=== PATIENT | female | born 1950 | race Caucasian/White ===

== ENCOUNTER 2017-12-23 14:22 | Emergency (ER) | payer MEDICARE, OTHER ==
[~2017-12-23] VITALS: Ht 157.5 cm; Wt 77.1 kg
[~2017-12-23 14:22] MED LIST: ALBU90OI6 INH; AMIT50; AMIT75; ARIP10 PO; AZIT250 PO; CALCAVITD PO; CARB100ER; CARB200 PO; CITA20 PO; CLIM.025TP TP; CLON.5 PO; DULO30 PO; ESOM20 PO; ESTR.05P; GABA300 PO; GLUC500 PO; HYDACE10B PO; HYDACE5; HYDCOR10; Keflex500 MG PO; LAVAP4L PO; LEVFLO500 PO; LORA2 PO; META800 PO; METH10 PO; METR500 PO; MONT5TCH PO; MONTELUKAST SOD10 MG PO; MULVITMINF PO; Norco 5-325 Ta1 EACH PO; Nystatin15 GM TOP; Nystatin15 GM TP; OMEP40CA12 PO; OXYACE5T PO; OXYC40ER; Oxycodone-Apap1 EAC3 PO; PARO10 PO; PARO20; PRAV10 PO; PRODEXEL PO; Percocet 5-3251 EACH PO; Pravastatin Sod20 MG PO; Pyridium200 MG PO; SOLI5; TAMS.4ER PO; VALD20 PO; VENL25; Valium5 MG PO; Zofran Odt8 MG SL; [UNRECOGNIZED DRUG - REMARK]; [UNRECOGNIZED DRUG - REMARK]; [UNRECOGNIZED DRUG - REMARK]; [UNRECOGNIZED DRUG - REMARK]; [UNRECOGNIZED DRUG - REMARK]
[2017-12-23 15:18] LABS: BASOPHILS ABSOLUTE AUTO 0.03 K/mm3 (0.00-0.23); BASOPHILS PERCENT AUTO 1 % (0-2); EOSINOPHILS ABSOLUTE AUTO 0.08 K/mm3 (0.00-0.68); EOSINOPHILS PERCENT AUTO 1 % (0-6); Hematocrit 40.7 % (33.0-51.0); Hemoglobin 13.3 g/dL (11.5-16.0); IMMATURE GRAN ABSOLUTE AUTO 0.02 K/mm3 (0.00-0.10); IMMATURE GRAN PERCENT AUTO 0 % (0-1); LYMPHOCYTES ABSOLUTE AUTO 1.21 K/mm3 (0.84-5.20); LYMPHOCYTES PERCENT AUTO 20 % (21-46); MONOCYTES ABSOLUTE AUTO 0.67 K/mm3 (0.16-1.47); MONOCYTES PERCENT AUTO 11 % (4-13); Mean Corpuscular HGB 31.7 pg (26.0-34.0); Mean Corpuscular HGB Conc 32.7 g/dL (31.5-36.5); Mean Corpuscular Volume 97 fL (80-100); Mean Platelet Volume 9.4 fL (9.1-12.4); NEUTROPHILS ABSOLUTE AUTO 4.04 K/mm3 (1.96-9.15); NEUTROPHILS PERCENT AUTO 67 % (41-73); Platelet Count 279 K/mm3 (150-400); RDW Standard Deviation 43.3 fL (35.1-46.3); Red Blood Cell Count 4.19 M/mm3 (3.80-5.20); White Blood Cell Count 6.05 K/mm3 (4.00-11.30)
[2017-12-23 15:36] LABS: Alanine Aminotransfer (ALT/SGP 23 U/L (12-78); Albumin, Blood 3.8 g/dL (3.4-5.0); Alk Phos 103 U/L (50-136); Anion Gap 6 mmol/L (6-16); Aspartate Aminotrans (AST/SGOT 19 U/L (12-37); Bilirubin, Total 0.2 mg/dL (0.1-1.0); Blood Urea Nitrogen 15 mg/dL (8-24); Bun/Creatinine Ratio 30.8 (12.0-20.0); CO2, Blood 32 mmol/L (21-32); Calcium, Blood 8.5 mg/dL (8.5-10.1); Chloride, Blood 99 mmol/L (98-108); Creatinine, Blood 0.49 mg/dL (0.40-1.00); Glomerular Filtration Rate >60 (60-); Glucose, Blood 196 mg/dL (70-99); Sodium, Blood 137 mmol/L (136-145); Total Protein, Blood 7.8 g/dL (6.4-8.2)
[2017-12-23] MEDS ORDERED: Zofran Odt4 MG PO (18:02)
== END 2017-12-23 18:30 | disposition home or self-care (01) ==
LOC: ER 14:22
PROVIDERS: Emergency Medicine
DX: R11.2 Nausea with vomiting, unspecified (principal); R19.7 Diarrhea, unspecified; Z79.891 Long term (current) use of opiate analgesic; Z79.899 Other long term (current) drug therapy; F17.210 Nicotine dependence, cigarettes, uncomplicated
CPT/HCPCS: 36415; 80053; 81000; 83690; 85025; 96361; 96374; 99283; J2405; J7030

== ENCOUNTER → 2018-01-19 | Outpatient (CLI) | payer MEDICARE, OTHER ==
[~2018-01-19] MED LIST changes: +Zofran Odt4 MG PO
[2018-01-19 13:04] LABS: BASOPHILS ABSOLUTE AUTO 0.03 K/mm3 (0.00-0.23); BASOPHILS PERCENT AUTO 1 % (0-2); EOSINOPHILS ABSOLUTE AUTO 0.13 K/mm3 (0.00-0.68); EOSINOPHILS PERCENT AUTO 2 % (0-6); Hematocrit 41.7 % (33.0-51.0); Hemoglobin 13.9 g/dL (11.5-16.0); IMMATURE GRAN ABSOLUTE AUTO 0.09 K/mm3 (0.00-0.10); IMMATURE GRAN PERCENT AUTO 1 % (0-1); LYMPHOCYTES ABSOLUTE AUTO 1.54 K/mm3 (0.84-5.20); LYMPHOCYTES PERCENT AUTO 23 % (21-46); MONOCYTES ABSOLUTE AUTO 0.58 K/mm3 (0.16-1.47); MONOCYTES PERCENT AUTO 9 % (4-13); Mean Corpuscular HGB 31.4 pg (26.0-34.0); Mean Corpuscular HGB Conc 33.3 g/dL (31.5-36.5); Mean Corpuscular Volume 94 fL (80-100); Mean Platelet Volume 9.1 fL (9.1-12.4); NEUTROPHILS ABSOLUTE AUTO 4.27 K/mm3 (1.96-9.15); NEUTROPHILS PERCENT AUTO 64 % (41-73); Platelet Count 310 K/mm3 (150-400); RDW Coefficient Variation 11.9 % (11.7-14.2); RDW Standard Deviation 41.6 fL (35.1-46.3); Red Blood Cell Count 4.43 M/mm3 (3.80-5.20); White Blood Cell Count 6.64 K/mm3 (4.00-11.30)
== END | disposition home or self-care (01) ==
LOC: LAB EV 12:59 → LAB SHORT 12:59
PROVIDERS: Family Medicine
DX: K62.5 Hemorrhage of anus and rectum (principal)
CPT/HCPCS: 85025

== ENCOUNTER 2018-10-19 20:12 | Observation (INO) | payer MEDICARE, OTHER ==
[~2018-10-19] VITALS: Ht 157.5 cm; Wt 75.3 kg
[2018-10-19] MEDS ORDERED: AMIT75 PO (20:38)
[2018-10-19 21:34] LABS: BASOPHILS ABSOLUTE AUTO 0.06 K/mm3 (0.00-0.23); BASOPHILS PERCENT AUTO 1 % (0-2); EOSINOPHILS ABSOLUTE AUTO 0.08 K/mm3 (0.00-0.68); EOSINOPHILS PERCENT AUTO 1 % (0-6); Hematocrit 37.7 % (33.0-51.0); IMMATURE GRAN ABSOLUTE AUTO 0.06 K/mm3 (0.00-0.10); IMMATURE GRAN PERCENT AUTO 1 % (0-1); LYMPHOCYTES ABSOLUTE AUTO 2.16 K/mm3 (0.84-5.20); LYMPHOCYTES PERCENT AUTO 18 % (21-46); MONOCYTES ABSOLUTE AUTO 1.08 K/mm3 (0.16-1.47); MONOCYTES PERCENT AUTO 9 % (4-13); Mean Corpuscular HGB 31.8 pg (26.0-34.0); Mean Corpuscular HGB Conc 31.8 g/dL (31.5-36.5); Mean Corpuscular Volume 100 fL (80-100); Mean Platelet Volume 9.5 fL (9.1-12.4); NEUTROPHILS ABSOLUTE AUTO 8.83 K/mm3 (1.96-9.15); NEUTROPHILS PERCENT AUTO 72 % (41-73); Platelet Count 284 K/mm3 (150-400); RDW Coefficient Variation 12.3 % (11.7-14.2); RDW Standard Deviation 45.4 fL (35.1-46.3); Red Blood Cell Count 3.77 M/mm3 (3.80-5.20); White Blood Cell Count 12.27 K/mm3 (4.00-11.30)
[2018-10-19 21:45] LABS: Alanine Aminotransfer (ALT/SGP 25 U/L (12-78); Albumin, Blood 3.9 g/dL (3.4-5.0); Albumin/Globulin Ratio 1.1 (0.8-1.8); Alk Phos 90 U/L (50-136); Anion Gap 11 mmol/L (6-16); Aspartate Aminotrans (AST/SGOT 15 U/L (12-37); Bilirubin, Total 0.3 mg/dL (0.1-1.0); Blood Urea Nitrogen 12 mg/dL (8-24); Bun/Creatinine Ratio 18.1 (12.0-20.0); CO2, Blood 28 mmol/L (21-32); Calcium, Blood 8.9 mg/dL (8.5-10.1); Chloride, Blood 102 mmol/L (98-108); Creatinine, Blood 0.66 mg/dL (0.40-1.00); Globulin, Blood 3.4 g/dL (2.2-4.0); Glomerular Filtration Rate >60 (60-); Glucose, Blood 194 mg/dL (70-99); Potassium, Blood 3.6 mmol/L (3.5-5.5); Salicylate 3.3 mg/dL (2.8-20.0); Sodium, Blood 141 mmol/L (136-145); Total Protein, Blood 7.3 g/dL (6.4-8.2)
[2018-10-19 21:50] LABS: Acetaminophen, Random <2.0 ug/mL (10.0-30.0)
[2018-10-19 22:21] LABS: U Amphetamine Screen Not Detected; U Barbituate Screen Not Detected; U Benzodiazapine Screen Not Detected; U Buprenorphine Screen Not Detected; U Cannabinoids Screen Not Detected; U Cocaine Screen Not Detected; U Methadone Screen Not Detected; U Methamphetamine Screen Not Detected; U Opiates Screen Not Detected; U Oxycodone Screen Not Detected; U Phencyclidine Screen Not Detected; U Propoxyphene Screen Not Detected
[2018-10-20 00:08] LABS: Source, Urine Clean Catch
[2018-10-20 00:11] LABS: Bilirubin, Urine Neg (Neg); Blood, Urine Neg (Neg); Glucose Qualitative, Urine Neg (Neg); Ketones, Urine Neg (Neg); Leukocyte Esterase, Urine Neg (Neg); Nitrite, Urine Neg (Neg); Protein, Urine 2+ (Neg); Specific Gravity, Urine 1.005 (1.003-1.022); Urobilinogen, Urine NORM (Normal)
[2018-10-20 00:23] LABS: Appearance, Urine Clear (Clear); Color, Urine Yellow (P-Yellow)
[2018-10-20 00:24] LABS: Bacteria Few /hpf; Red Blood Cells, Urine 0-2 /hpf (0-2); Squamous Epithelial Cells Rare /hpf (Few)
--- NOTE | 2018-10-20 00:35 | NUR ---
ADMIT PT ARRIVES FROM ER VIA STRETCHER, ALERT TO SELF, KNOWS THAT SHE IS IN THE HOSPITAL, THAT IT WAS HOT TODAY AND HER IS NAMED CAPRI (WHO WENT HOME PRIOR TO ARRIVAL), CONFUSED TO DATE/TIME AND REPEATS QUESTIONS- UNCLEAR WHAT PT'S BASELINE IS W/ HX AVM/CVA/TBI. PT MAKING NEEDS KNOWN BUT IS REPETITIVELY ASKING QUESTIONS ABOUT FOOD AND WATER. EDUCATED AND EXPLAINED CONCERNS ABOUT CHANGE IN LOC AND PT APPEARS TO UNDERSTAND. PT THEN ASKS FOR HER EVENING DOSE OF AMITRYPTYLINE BUT DOES REMEMBER "I SCREWED UP MY MEDS TONIGHT" BUT CANNOT REMEMBER HOW MANY PILLS SHE TOOK. POISON CONTROL CALLED AND WAS UPDATED, ECG SHOWS SR WITH QTC AT 0.45 AND NARROW QRS. PLAN TO INITIATE ADMIT ORDERS.
--- NOTE | 2018-10-20 06:30 | NUR ---
SHIFT SUMMARY NO ACUTE EVENTS OVERNIGHT. BP STABLE, ECG REMAINS NARROW COMPLEX WITH QTC < 0.50. PT CURRENTLY SLEEPING AFTER INITALLY BEING RESTLESS AND UNABLE TO GET COMFORTABLE. #1 NS AT 75ML/HR WITH PLAN FOR TOTAL OF 1.5L. PT HAS ONLY ONE PIV, MADE ATTEMPT X 2 WITH/WITHOUT ULTRASOUND BUT UNABLE TO PLACE #2. AM LABS DUR AT 1000 D/T LATE ADMIT TIME-WILL PASS OFF TO AM RN.
--- NOTE | 2018-10-20 08:00 | NUR ---
INITIAL ASSESSMENT PATIENT RESTING QUIELTLY IN BED UPON ENTERING ROOM. PATIENT ALERT AND ORIENTED TO SELF, PLACE, EVENT, FAMILY, AND FOLLOWING DIRECTIONS. PATIENT IS NOT ORIENTED TO DATE AND DOES SEEM TO HAVE PROBLEMS WITH SHORT TERM MEMORY. PATIENT HAS HISTORY OF TBI AND STROKE. PATIENT'S LEFT ARM IS CONTRACTED- LEFT SIDE DEFICITS NOTED. PATIENT HAS GROSS MOVEMENT OF BLES. NORMAL STRENGTH IN BUES. PATIENT DENIES PAIN. PATIENT AFEBRILE. PATIENT CAN BE NEEDY/ ANXIOUS AT TIMES. PATIENT SATTING WELL ON RA. LUNGS CLEAR IN UPPER LOBES, DIMINISHED IN LOWER LOBES. PATIENT IN SR, HR IN THE 60S. SBP IN THE 170S. R SIDE PULSES 2+ IN STRENGTH. LEFT SIDE PULSES 1+ IN STRENGTH. ABDOMEN SOFT, NORMAL FOR PATIENT, HYPOACTIVE BS NOTED. PATIENT STATES SHE HAS FREQUENCY WITH VOIDING. SCATTERED BRUISING NOTED. NS INFUSING AT 75 MLS/ HOUR. BED LOW, CALL LIGHT IN REACH. WILL CONTINUE TO MONITOR PATIENT FREQUENTLY THROUGHOUT SHIFT.
[2018-10-20 10:15] LABS: Hematocrit 35.2 % (33.0-51.0); Hemoglobin 11.2 g/dL (11.5-16.0); Mean Corpuscular HGB 31.2 pg (26.0-34.0); Mean Corpuscular HGB Conc 31.8 g/dL (31.5-36.5); Mean Corpuscular Volume 98 fL (80-100); Platelet Count 240 K/mm3 (150-400); RDW Coefficient Variation 12.3 % (11.7-14.2); RDW Standard Deviation 44.5 fL (35.1-46.3); Red Blood Cell Count 3.59 M/mm3 (3.80-5.20); White Blood Cell Count 7.03 K/mm3 (4.00-11.30)
[2018-10-20 10:37] LABS: Alanine Aminotransfer (ALT/SGP 25 U/L (12-78); Albumin, Blood 3.5 g/dL (3.4-5.0); Alk Phos 88 U/L (50-136); Anion Gap 5 mmol/L (6-16); Aspartate Aminotrans (AST/SGOT 14 U/L (12-37); Bilirubin, Total 0.4 mg/dL (0.1-1.0); Blood Urea Nitrogen 9 mg/dL (8-24); Bun/Creatinine Ratio 23.9 (12.0-20.0); CO2, Blood 31 mmol/L (21-32); Calcium, Blood 8.7 mg/dL (8.5-10.1); Chloride, Blood 105 mmol/L (98-108); Creatinine, Blood 0.38 mg/dL (0.40-1.00); Globulin, Blood 3.4 g/dL (2.2-4.0); Glomerular Filtration Rate >60 (60-); Glucose, Blood 128 mg/dL (70-99); Potassium, Blood 3.6 mmol/L (3.5-5.5); Sodium, Blood 141 mmol/L (136-145); Total Protein, Blood 6.9 g/dL (6.4-8.2)
--- NOTE | 2018-10-20 11:04 | NUR ---
DR. THOR CORBETT IN ROOM THIS AM. NOTIFIED OF PATIENT'S SBP IN THE 160S TO 170S. STATED HE WILL BE PUTTING ORDERS IN.
--- NOTE | 2018-10-20 12:19 | NUR ---
PATIENT NAPPING ON AND OFF. AT BEDSIDE. PATIENT DENIES PAIN. PATIENT STATES SHE IS HUNGRY. PATIENT AFEBRILE. PATIENT REMAINS SATTING WELL ON RA. PATIENT HYPERTENSIVE. PATIENT GIVEN HOME BP MEDICATION. WILL CONTINUE TO MONITOR. ESTROGEN PATCH REMOVED DC'D BY DR. THOR CORBETT. IV FLUSHED AND SALINE LOCKED. NO OTHER ACUTE CHANGES TO NOTE ON AT THIS TIME. WILL CONTINUE TO MONITOR.
--- NOTE | 2018-10-20 13:39 | NUR ---
BP IMPROVED AFTER RECEIVING HOME DOSE OF PO BP MED.
[2018-10-20] MEDS ORDERED: CLON2 PO (14:06)
[2018-10-20] MEDS ORDERED: DICLOFENAC SOD100 G1 TOP (14:07)
[2018-10-20] MEDS ORDERED: Acetaminophen1 EAC2 PO (14:08)
[2018-10-20] MEDS ORDERED: LOSARTAN-HCTZ1 EACH PO (14:10)
--- NOTE | 2018-10-20 14:31 | NUR ---
DR. CORBETT CALLED TO ASK IF PATIENT HAD EATEN AND GOTTEN OOB. PATIENT HAS HAD LUNCH AND IS IN CHAIR, WAITING FOR TO RETURN. KRISS JIMENEZ [place] IN ROOM TALKING TO PATIENT AT THIS TIME.
[2018-10-20] MEDS ORDERED: METF500 PO (14:57)
[2018-10-20] MEDS ORDERED: Omeprazole20 M1 PO (14:59)
[2018-10-20] MEDS ORDERED: OXYC10TA19 PO (15:01)
[2018-10-20] MEDS ORDERED: PARO20 PO (15:02)
[2018-10-20] MEDS ORDERED: TRIA15CR3 TOP (15:04)
[2018-10-20] MEDS ORDERED: VENL150ER PO (15:04)
[2018-10-20] MEDS ORDERED: ALBU90OI INH (15:05)
[2018-10-20] MEDS ORDERED: ROXICODONE5 MG PO (15:33)
--- NOTE | 2018-10-20 16:20 | NUR ---
VITAL SIGNS STABLE. PATIENT ABLE TO TRANSFER SELF TO WHEELCHAIR WITH NO PROBLEMS. BACK AT BEDSIDE. AND PATIENT GIVEN DISCHARGE INFO. BOTH STATE THAT THEY UNDERSTAND DISCHARGE INSTRUCTIONS. WHEELING PATIENT OUT IN HOME WHEELCHAIR NOW. DISCHARGE COMPLETE.
== END 2018-10-20 16:20 | disposition home or self-care (01) ==
LOC: ER 20:12 → ICUW 20:13 → ICUE 10-20 00:50
PROVIDERS: Emergency Medicine; ADMIT Internal Medicine
DX: T43.011A Poisoning by tricyclic antidepressants, accidental (unintentional), initial encounter (principal); G92 Toxic encephalopathy; E86.0 Dehydration; I10 Essential (primary) hypertension; E11.9 Type 2 diabetes mellitus without complications; J44.9 Chronic obstructive pulmonary disease, unspecified; G40.909 Epilepsy, unspecified, not intractable, without status epilepticus; K21.9 Gastro-esophageal reflux disease without esophagitis; F32.9 Major depressive disorder, single episode, unspecified; F41.0 Panic disorder [episodic paroxysmal anxiety]; F51.04 Psychophysiologic insomnia; G81.94 Hemiplegia, unspecified affecting left nondominant side; G89.4 Chronic pain syndrome; M19.90 Unspecified osteoarthritis, unspecified site; E78.5 Hyperlipidemia, unspecified; F17.210 Nicotine dependence, cigarettes, uncomplicated; Z87.820 Personal history of traumatic brain injury; Z86.718 Personal history of other venous thrombosis and embolism; Z79.899 Other long term (current) drug therapy; Z87.798 Personal history of other (corrected) congenital malformations; Z79.84 Long term (current) use of oral hypoglycemic drugs
CPT/HCPCS: 36415; 70450; 80053; 81001; 82947; 85025; 85027; 93005; 93010; 96360; 96361; 96372; 99285-25; G0378; G0480; J1650; J7030

== ENCOUNTER 2019-08-10 10:17 | Day surgery (SDC) | payer MEDICARE, OTHER ==
[~2019-08-10] VITALS: Ht 157.5 cm; Wt 75.0 kg
[~2019-08-10 10:17] MED LIST changes: +ALBU90OI INH; +AMIT75 PO; +Acetaminophen1 EAC2 PO; +CLON2 PO; +DICLOFENAC SOD100 G1 TOP; +LOSARTAN-HCTZ1 EACH PO; +METF500 PO; +OXYC10TA19 PO; +Omeprazole20 M1 PO; +PARO20 PO; +ROXICODONE5 MG PO; +TRIA15CR3 TOP; +VENL150ER PO
[2019-08-10] MEDS ORDERED: MONT4 (11:10)
[2019-08-10] MEDS ORDERED: CARB100ER (11:10)
--- NOTE | 2019-08-10 11:41 | NUR ---
08/10/19 1141 Lacy Otto PT UP TO RESTROOM WITH THIS RN AND SPOUSE VIA PERSONAL WHEELCHAIR.
--- NOTE | 2019-08-10 12:41 | NUR ---
08/10/19 1241 Lacy Otto UNABLE TO RETRIEVE SIGMOID COLON POLYP.
== END 2019-08-10 13:17 | disposition home or self-care (01) ==
LOC: ORSCSDS 10:17
PROVIDERS: Internal Medicine Gastroenterology
PROC: 0DBN8ZX Excision of Sigmoid Colon, Via Natural or Artificial Opening Endoscopic, Diagnostic (ICD-10-PCS; principal; 2019-08-10 12:00)
PROC: 0DB68ZX Excision of Stomach, Via Natural or Artificial Opening Endoscopic, Diagnostic (ICD-10-PCS; principal; 2019-08-10 12:00)
DX: K21.9 Gastro-esophageal reflux disease without esophagitis (principal); K92.1 Melena; K29.70 Gastritis, unspecified, without bleeding; K64.4 Residual hemorrhoidal skin tags; D37.4 Neoplasm of uncertain behavior of colon; K64.8 Other hemorrhoids; I10 Essential (primary) hypertension; E11.9 Type 2 diabetes mellitus without complications; J44.9 Chronic obstructive pulmonary disease, unspecified; Z87.891 Personal history of nicotine dependence; G47.33 Obstructive sleep apnea (adult) (pediatric); Z79.84 Long term (current) use of oral hypoglycemic drugs
CPT/HCPCS: 82947; 88305; 88342; J2704; J7120

== ENCOUNTER 2019-08-31 12:42 | Emergency (ER) | payer MEDICARE, OTHER ==
[~2019-08-31] VITALS: Ht 157.5 cm; Wt 72.6 kg
[~2019-08-31 12:42] MED LIST changes: +MONT4
[2019-08-31 13:41] LABS: Alanine Aminotransfer (ALT/SGP 22 U/L (12-78); Alk Phos 116 U/L (50-136); Anion Gap 8 mmol/L (6-16); Aspartate Aminotrans (AST/SGOT 15 U/L (12-37); Bilirubin, Total 0.2 mg/dL (0.1-1.0); Blood Urea Nitrogen 14 mg/dL (8-24); Bun/Creatinine Ratio 20.2 (12.0-20.0); CO2, Blood 28 mmol/L (21-32); Calcium, Blood 8.8 mg/dL (8.5-10.1); Chloride, Blood 101 mmol/L (98-108); Creatinine, Blood 0.69 mg/dL (0.40-1.00); Globulin, Blood 4.1 g/dL (2.2-4.0); Glomerular Filtration Rate >60 (60-); Glucose, Blood 251 mg/dL (70-99); Potassium, Blood 3.7 mmol/L (3.5-5.5); Sodium, Blood 137 mmol/L (136-145); Total Protein, Blood 8.1 g/dL (6.4-8.2)
[2019-08-31 13:55] LABS: BASOPHILS ABSOLUTE AUTO 0.03 K/mm3 (0.00-0.23); BASOPHILS PERCENT AUTO 1 % (0-2); EOSINOPHILS PERCENT AUTO 2 % (0-6); Hematocrit 36.5 % (33.0-51.0); Hemoglobin 11.8 g/dL (11.5-16.0); IMMATURE GRAN ABSOLUTE AUTO 0.03 K/mm3 (0.00-0.10); IMMATURE GRAN PERCENT AUTO 1 % (0-1); LYMPHOCYTES ABSOLUTE AUTO 2.22 K/mm3 (0.84-5.20); LYMPHOCYTES PERCENT AUTO 38 % (21-46); MONOCYTES ABSOLUTE AUTO 0.54 K/mm3 (0.16-1.47); MONOCYTES PERCENT AUTO 9 % (4-13); Mean Corpuscular HGB 31.5 pg (26.0-34.0); Mean Corpuscular HGB Conc 32.3 g/dL (31.5-36.5); Mean Corpuscular Volume 97 fL (80-100); NEUTROPHILS ABSOLUTE AUTO 2.93 K/mm3 (1.96-9.15); NEUTROPHILS PERCENT AUTO 50 % (41-73); RDW Coefficient Variation 11.9 % (11.7-14.2); Red Blood Cell Count 3.75 M/mm3 (3.80-5.20); White Blood Cell Count 5.85 K/mm3 (4.00-11.30)
[2019-08-31 15:37] LABS: Source, Urine Clean Catch
[2019-08-31 15:53] LABS: Bilirubin, Urine Neg (Neg); Blood, Urine Neg (Neg); Glucose Qualitative, Urine Neg (Neg); Ketones, Urine Neg (Neg); Leukocyte Esterase, Urine 1+ (Neg); Nitrite, Urine Neg (Neg); Protein, Urine 1+ (Neg); Urobilinogen, Urine NORM (Normal)
[2019-08-31 16:08] LABS: Appearance, Urine Clear (Clear); Color, Urine Yellow (P-Yellow)
[2019-08-31 16:10] LABS: Red Blood Cells, Urine 0-2 /hpf (0-2)
[2019-08-31 16:11] LABS: Bacteria Mod /hpf; Squamous Epithelial Cells Few /hpf (Few)
[2019-08-31] MEDS ORDERED: CYCL10 PO (17:04)
== END 2019-08-31 17:25 | disposition home or self-care (01) ==
LOC: ER 12:42
PROVIDERS: Emergency Medicine
DX: M54.9 Dorsalgia, unspecified (principal); K62.5 Hemorrhage of anus and rectum; J44.9 Chronic obstructive pulmonary disease, unspecified; F17.210 Nicotine dependence, cigarettes, uncomplicated; Z79.899 Other long term (current) drug therapy; Z79.84 Long term (current) use of oral hypoglycemic drugs
CPT/HCPCS: 36415; 72100; 80053; 81001; 85025; 87086; 99283-25

== ENCOUNTER → 2019-10-28 | Outpatient (CLI) | payer MEDICARE, OTHER ==
[~2019-10-28] MED LIST changes: +CYCL10 PO
[2019-10-28 12:12] LABS: BASOPHILS ABSOLUTE AUTO 0.02 K/mm3 (0.00-0.23); BASOPHILS PERCENT AUTO 0 % (0-2); EOSINOPHILS ABSOLUTE AUTO 0.02 K/mm3 (0.00-0.68); EOSINOPHILS PERCENT AUTO 0 % (0-6); Hematocrit 38.6 % (33.0-51.0); Hemoglobin 12.6 g/dL (11.5-16.0); IMMATURE GRAN ABSOLUTE AUTO 0.05 K/mm3 (0.00-0.10); IMMATURE GRAN PERCENT AUTO 1 % (0-1); LYMPHOCYTES ABSOLUTE AUTO 1.35 K/mm3 (0.84-5.20); LYMPHOCYTES PERCENT AUTO 16 % (21-46); MONOCYTES ABSOLUTE AUTO 0.68 K/mm3 (0.16-1.47); MONOCYTES PERCENT AUTO 8 % (4-13); Mean Corpuscular HGB 31.4 pg (26.0-34.0); Mean Corpuscular HGB Conc 32.6 g/dL (31.5-36.5); Mean Corpuscular Volume 96 fL (80-100); Mean Platelet Volume 9.3 fL (9.1-12.4); NEUTROPHILS ABSOLUTE AUTO 6.33 K/mm3 (1.96-9.15); NEUTROPHILS PERCENT AUTO 75 % (41-73); Platelet Count 380 K/mm3 (150-400); RDW Coefficient Variation 12.4 % (11.7-14.2); RDW Standard Deviation 43.7 fL (35.1-46.3); Red Blood Cell Count 4.01 M/mm3 (3.80-5.20); White Blood Cell Count 8.45 K/mm3 (4.00-11.30)
[2019-10-28 12:29] LABS: Alanine Aminotransfer (ALT/SGP 25 U/L (12-78); Albumin, Blood 3.9 g/dL (3.4-5.0); Albumin/Globulin Ratio 0.8 (0.8-1.8); Alk Phos 131 U/L (40-126); Anion Gap 11 mmol/L (6-16); Aspartate Aminotrans (AST/SGOT 17 U/L (12-37); Bilirubin, Total 0.2 mg/dL (0.1-1.0); Blood Urea Nitrogen 28 mg/dL (8-24); Bun/Creatinine Ratio 31.8 (12.0-20.0); CO2, Blood 31 mmol/L (21-32); Calcium, Blood 9.3 mg/dL (8.5-10.1); Chloride, Blood 98 mmol/L (98-108); Creatinine, Blood 0.88 mg/dL (0.40-1.00); Globulin, Blood 4.6 g/dL (2.2-4.0); Glomerular Filtration Rate >60 (60-); Glucose, Blood 155 mg/dL (70-99); Potassium, Blood 4.5 mmol/L (3.5-5.5); Sodium, Blood 140 mmol/L (136-145); Total Protein, Blood 8.5 g/dL (6.4-8.2)
== END | disposition home or self-care (01) ==
LOC: LAB SHORT 12:07 → LAB EV 12:07
PROVIDERS: Physician Assistant
DX: R10.13 Epigastric pain (principal)
CPT/HCPCS: 80053; 83690; 85025

== ENCOUNTER 2019-11-03 18:04 | Emergency (ER) | payer MEDICARE, OTHER ==
[~2019-11-03] VITALS: Ht 157.5 cm; Wt 69.0 kg
[2019-11-03 20:31] LABS: BASOPHILS ABSOLUTE AUTO 0.05 K/mm3 (0.00-0.23); BASOPHILS PERCENT AUTO 1 % (0-2); EOSINOPHILS ABSOLUTE AUTO 0.11 K/mm3 (0.00-0.68); EOSINOPHILS PERCENT AUTO 2 % (0-6); Hematocrit 38.9 % (33.0-51.0); Hemoglobin 12.5 g/dL (11.5-16.0); IMMATURE GRAN ABSOLUTE AUTO 0.02 K/mm3 (0.00-0.10); IMMATURE GRAN PERCENT AUTO 0 % (0-1); LYMPHOCYTES PERCENT AUTO 28 % (21-46); MONOCYTES ABSOLUTE AUTO 0.54 K/mm3 (0.16-1.47); MONOCYTES PERCENT AUTO 9 % (4-13); Mean Corpuscular HGB 31.4 pg (26.0-34.0); Mean Corpuscular HGB Conc 32.1 g/dL (31.5-36.5); Mean Platelet Volume 9.5 fL (9.1-12.4); NEUTROPHILS ABSOLUTE AUTO 3.64 K/mm3 (1.96-9.15); NEUTROPHILS PERCENT AUTO 60 % (41-73); Platelet Count 251 K/mm3 (150-400); RDW Standard Deviation 43.3 fL (35.1-46.3); Red Blood Cell Count 3.98 M/mm3 (3.80-5.20); White Blood Cell Count 6.06 K/mm3 (4.00-11.30)
[2019-11-03 20:33] LABS: Mean Corpuscular Volume 98 fL (80-100)
[2019-11-03 20:46] LABS: International Normalized Ratio 0.98; Prothrombin Time Results 10.5 Sec (9.7-11.5)
[2019-11-03 20:55] LABS: Alanine Aminotransfer (ALT/SGP 32 U/L (12-78); Albumin, Blood 3.8 g/dL (3.4-5.0); Albumin/Globulin Ratio 0.9 (0.8-1.8); Alk Phos 127 U/L (50-136); Anion Gap 7 mmol/L (6-16); Aspartate Aminotrans (AST/SGOT 40 U/L (12-37); Bilirubin, Total 0.2 mg/dL (0.1-1.0); Blood Urea Nitrogen 12 mg/dL (8-24); Bun/Creatinine Ratio 22.6 (12.0-20.0); CO2, Blood 28 mmol/L (21-32); Calcium, Blood 9.1 mg/dL (8.5-10.1); Chloride, Blood 97 mmol/L (98-108); Creatinine, Blood 0.53 mg/dL (0.40-1.00); Globulin, Blood 4.2 g/dL (2.2-4.0); Glomerular Filtration Rate >60 (60-); Glucose, Blood 153 mg/dL (70-99); Sodium, Blood 132 mmol/L (136-145)
== END 2019-11-03 22:05 | disposition home or self-care (01) ==
LOC: ER 18:04
PROVIDERS: Emergency Medicine
DX: R40.0 Somnolence (principal); M54.9 Dorsalgia, unspecified; I69.354 Hemiplegia and hemiparesis following cerebral infarction affecting left non-dominant side; J44.9 Chronic obstructive pulmonary disease, unspecified; F17.210 Nicotine dependence, cigarettes, uncomplicated; Z79.899 Other long term (current) drug therapy; Z79.84 Long term (current) use of oral hypoglycemic drugs; Z79.51 Long term (current) use of inhaled steroids; Z86.718 Personal history of other venous thrombosis and embolism
CPT/HCPCS: 36415; 70450; 80053; 80156; 85025; 85610; 93005; 93010; 99285-25

== ENCOUNTER → 2019-11-03 | Outpatient (CLI) | payer MEDICARE, OTHER ==
[2019-11-03 16:51] LABS: BASOPHILS ABSOLUTE AUTO 0.03 K/mm3 (0.00-0.23); BASOPHILS PERCENT AUTO 1 % (0-2); EOSINOPHILS PERCENT AUTO 2 % (0-6); Hematocrit 36.6 % (33.0-51.0); IMMATURE GRAN ABSOLUTE AUTO 0.02 K/mm3 (0.00-0.10); IMMATURE GRAN PERCENT AUTO 0 % (0-1); LYMPHOCYTES ABSOLUTE AUTO 1.34 K/mm3 (0.84-5.20); LYMPHOCYTES PERCENT AUTO 24 % (21-46); MONOCYTES ABSOLUTE AUTO 0.53 K/mm3 (0.16-1.47); MONOCYTES PERCENT AUTO 10 % (4-13); Mean Corpuscular HGB 31.3 pg (26.0-34.0); Mean Corpuscular HGB Conc 32.8 g/dL (31.5-36.5); Mean Corpuscular Volume 95 fL (80-100); Mean Platelet Volume 9.4 fL (9.1-12.4); NEUTROPHILS ABSOLUTE AUTO 3.49 K/mm3 (1.96-9.15); NEUTROPHILS PERCENT AUTO 63 % (41-73); Platelet Count 288 K/mm3 (150-400); RDW Coefficient Variation 12.4 % (11.7-14.2); RDW Standard Deviation 42.5 fL (35.1-46.3); Red Blood Cell Count 3.84 M/mm3 (3.80-5.20); White Blood Cell Count 5.51 K/mm3 (4.00-11.30)
[2019-11-03 16:53] LABS: Anion Gap 7 mmol/L (6-16); Blood Urea Nitrogen 13 mg/dL (8-24); Bun/Creatinine Ratio 17.3 (12.0-20.0); CO2, Blood 31 mmol/L (21-32); Calcium, Blood 8.8 mg/dL (8.5-10.1); Chloride, Blood 95 mmol/L (98-108); Creatinine, Blood 0.75 mg/dL (0.40-1.00); Glomerular Filtration Rate >60 (60-); Glucose, Blood 178 mg/dL (70-99); Potassium, Blood 4.3 mmol/L (3.5-5.5); Sodium, Blood 133 mmol/L (136-145)
== END | disposition home or self-care (01) ==
LOC: LAB SHORT 16:45 → LAB EV 16:45
PROVIDERS: Family Medicine
DX: R53.83 Other fatigue (principal)
CPT/HCPCS: 80048; 85025

== ENCOUNTER 2020-01-09 13:18 | Emergency (ER) | payer MEDICARE, OTHER ==
[~2020-01-09] VITALS: Ht 157.5 cm; Wt 68.0 kg
[2020-01-09 14:15] LABS: BASOPHILS ABSOLUTE AUTO 0.03 K/mm3 (0.00-0.23); BASOPHILS PERCENT AUTO 1 % (0-2); EOSINOPHILS ABSOLUTE AUTO 0.08 K/mm3 (0.00-0.68); EOSINOPHILS PERCENT AUTO 2 % (0-6); Hematocrit 37.8 % (33.0-51.0); Hemoglobin 11.9 g/dL (11.5-16.0); IMMATURE GRAN ABSOLUTE AUTO 0.01 K/mm3 (0.00-0.10); IMMATURE GRAN PERCENT AUTO 0 % (0-1); LYMPHOCYTES ABSOLUTE AUTO 1.45 K/mm3 (0.84-5.20); LYMPHOCYTES PERCENT AUTO 28 % (21-46); MONOCYTES ABSOLUTE AUTO 0.44 K/mm3 (0.16-1.47); MONOCYTES PERCENT AUTO 8 % (4-13); Mean Corpuscular HGB 30.3 pg (26.0-34.0); Mean Corpuscular HGB Conc 31.5 g/dL (31.5-36.5); Mean Corpuscular Volume 96 fL (80-100); Mean Platelet Volume 9.6 fL (9.1-12.4); NEUTROPHILS ABSOLUTE AUTO 3.24 K/mm3 (1.96-9.15); NEUTROPHILS PERCENT AUTO 62 % (41-73); Platelet Count 287 K/mm3 (150-400); RDW Coefficient Variation 12.4 % (11.7-14.2); RDW Standard Deviation 44.1 fL (35.1-46.3); Red Blood Cell Count 3.93 M/mm3 (3.80-5.20); White Blood Cell Count 5.25 K/mm3 (4.00-11.30)
[2020-01-09 14:35] LABS: Alanine Aminotransfer (ALT/SGP 19 U/L (12-78); Albumin, Blood 3.5 g/dL (3.4-5.0); Albumin/Globulin Ratio 0.8 (0.8-1.8); Alk Phos 125 U/L (50-136); Anion Gap 5 mmol/L (6-16); Aspartate Aminotrans (AST/SGOT 15 U/L (12-37); Bilirubin, Total 0.2 mg/dL (0.1-1.0); Blood Urea Nitrogen 14 mg/dL (8-24); Bun/Creatinine Ratio 30.2 (12.0-20.0); CO2, Blood 30 mmol/L (21-32); Calcium, Blood 8.7 mg/dL (8.5-10.1); Chloride, Blood 101 mmol/L (98-108); Creatinine, Blood 0.46 mg/dL (0.40-1.00); Globulin, Blood 4.5 g/dL (2.2-4.0); Glomerular Filtration Rate >60 (60-); Glucose, Blood 171 mg/dL (70-99); Potassium, Blood 4.2 mmol/L (3.5-5.5); Sodium, Blood 136 mmol/L (136-145)
[2020-01-09 16:20] LABS: Source, Urine Clean Catch
[2020-01-09 16:33] LABS: Bilirubin, Urine Neg (Neg); Blood, Urine Neg (Neg); Glucose Qualitative, Urine Neg (Neg); Ketones, Urine Neg (Neg); Leukocyte Esterase, Urine Neg (Neg); Nitrite, Urine Neg (Neg); Protein, Urine Neg (Neg); Urobilinogen, Urine NORM (Normal)
[2020-01-09 16:45] LABS: Appearance, Urine Clear (Clear); Color, Urine Yellow (P-Yellow)
[2020-01-09] MEDS ORDERED: Norco 5-325 Ta1 EACH PO (18:04)
== END 2020-01-09 18:21 | disposition home or self-care (01) ==
LOC: ER 13:18
PROVIDERS: Physician Assistant
DX: K52.9 Noninfective gastroenteritis and colitis, unspecified (principal); I70.0 Atherosclerosis of aorta; J44.9 Chronic obstructive pulmonary disease, unspecified; Z79.899 Other long term (current) drug therapy; Z79.84 Long term (current) use of oral hypoglycemic drugs; Z87.891 Personal history of nicotine dependence
CPT/HCPCS: 36415; 74176; 80053; 81003; 83690; 85025; 96374; 99284-25; J1170

== ENCOUNTER 2020-04-03 23:03 | Emergency (ER) | payer MEDICARE, OTHER ==
[~2020-04-03] VITALS: Ht 157.5 cm; Wt 72.6 kg
[~2020-04-03 23:03] MED LIST changes: -AMIT75 PO; -CLON2 PO; -GABA300 PO; -METF500 PO; -MONT4; -PARO20 PO; -Pravastatin Sod20 MG PO
[2020-04-05] MEDS ORDERED: BUPRENORPHINE HC2 MG SL ×2 (17:58→17:59)
[2020-04-05] MEDS ORDERED: CYCL10 PO (20:18)
[2020-04-05] MEDS ORDERED: PRINIVIL10 MG PO (20:19)
[2020-04-05] MEDS ORDERED: ATOR20 PO (20:19)
[2020-04-05] MEDS ORDERED: MONT10T PO (20:20)
[2020-04-05] MEDS ORDERED: AMIT75 PO (20:20)
[2020-04-05] MEDS ORDERED: Epitol200 MG PO ×2 (20:21→20:22)
[2020-04-05] MEDS ORDERED: METF500 PO (20:23)
[2020-04-05] MEDS ORDERED: FOSAMAX70 MG PO (20:23)
[2020-04-05] MEDS ORDERED: NEURONTIN300 MG PO (20:24)
[2020-04-05] MEDS ORDERED: PARO20 PO (20:26)
[2020-04-05] MEDS ORDERED: PAXIL40 M1 PO (20:26)
[2020-04-05] MEDS ORDERED: CLON2 PO (20:26)
[2020-04-05] MEDS ORDERED: PANT40 PO (20:27)
== END 2020-04-04 01:49 | disposition home or self-care (01) ==
LOC: ER 23:03
DX: S42.402A Unspecified fracture of lower end of left humerus, initial encounter for closed fracture (principal); J44.9 Chronic obstructive pulmonary disease, unspecified; Z87.891 Personal history of nicotine dependence; Z86.718 Personal history of other venous thrombosis and embolism; Z79.899 Other long term (current) drug therapy; Z79.84 Long term (current) use of oral hypoglycemic drugs; W05.0XXA Fall from non-moving wheelchair, initial encounter; Y92.009 Unspecified place in unspecified non-institutional (private) residence as the place of occurrence of the external cause
CPT/HCPCS: 73030; 73060; 73080; 99283-25; A9270-GY

== ENCOUNTER 2020-04-05 14:38 | Inpatient (IN) | payer MEDICARE, OTHER ==
[~2020-04-05] VITALS: Ht 157.5 cm; Wt 68.1 kg
[2020-04-05 15:23] LABS: BASOPHILS ABSOLUTE AUTO 0.04 K/mm3 (0.00-0.23); BASOPHILS PERCENT AUTO 1 % (0-2); EOSINOPHILS ABSOLUTE AUTO 0.06 K/mm3 (0.00-0.68); EOSINOPHILS PERCENT AUTO 1 % (0-6); Hematocrit 37.5 % (33.0-51.0); Hemoglobin 12.1 g/dL (11.5-16.0); IMMATURE GRAN ABSOLUTE AUTO 0.03 K/mm3 (0.00-0.10); IMMATURE GRAN PERCENT AUTO 0 % (0-1); LYMPHOCYTES ABSOLUTE AUTO 1.39 K/mm3 (0.84-5.20); LYMPHOCYTES PERCENT AUTO 18 % (21-46); MONOCYTES PERCENT AUTO 10 % (4-13); Mean Corpuscular HGB 30.5 pg (26.0-34.0); Mean Corpuscular HGB Conc 32.3 g/dL (31.5-36.5); Mean Corpuscular Volume 95 fL (80-100); Mean Platelet Volume 10.1 fL (9.1-12.4); NEUTROPHILS ABSOLUTE AUTO 5.49 K/mm3 (1.96-9.15); NEUTROPHILS PERCENT AUTO 70 % (41-73); Platelet Count 279 K/mm3 (150-400); RDW Coefficient Variation 13.1 % (11.7-14.2); RDW Standard Deviation 45.4 fL (35.1-46.3); Red Blood Cell Count 3.97 M/mm3 (3.80-5.20); White Blood Cell Count 7.81 K/mm3 (4.00-11.30)
[2020-04-05 15:35] LABS: Albumin, Blood 3.4 g/dL (3.4-5.0); Albumin/Globulin Ratio 0.7 (0.8-1.8); Bilirubin, Total 0.3 mg/dL (0.1-1.0); Bun/Creatinine Ratio 15.8 (12.0-20.0); Calcium, Blood 9.2 mg/dL (8.5-10.1); Creatinine, Blood 2.09 mg/dL (0.40-1.00); Globulin, Blood 4.8 g/dL (2.2-4.0); Potassium, Blood 4.8 mmol/L (3.5-5.5); Total Protein, Blood 8.2 g/dL (6.4-8.2)
[2020-04-05] MEDS ORDERED: BUPRENORPHINE HC2 MG SL ×2 (17:58→17:59)
[2020-04-05 18:58] LABS: Source, Urine Catheter
[2020-04-05 19:12] LABS: Bilirubin, Urine Neg (Neg); Blood, Urine 1+ (Neg); Glucose Qualitative, Urine Neg (Neg); Ketones, Urine Neg (Neg); Leukocyte Esterase, Urine Neg (Neg); Nitrite, Urine Neg (Neg); Protein, Urine 2+ (Neg); Urobilinogen, Urine NORM (Normal)
[2020-04-05 19:18] LABS: Appearance, Urine Clear (Clear); Color, Urine Yellow (P-Yellow)
[2020-04-05 19:19] LABS: Bacteria Many /hpf; Squamous Epithelial Cells Mod /hpf (Few)
[2020-04-05] MEDS ORDERED: CYCL10 PO (20:18)
[2020-04-05] MEDS ORDERED: ATOR20 PO (20:19)
[2020-04-05] MEDS ORDERED: PRINIVIL10 MG PO (20:19)
[2020-04-05] MEDS ORDERED: MONT10T PO (20:20)
[2020-04-05] MEDS ORDERED: AMIT75 PO (20:20)
[2020-04-05] MEDS ORDERED: Epitol200 MG PO ×2 (20:21→20:22)
[2020-04-05] MEDS ORDERED: METF500 PO (20:23)
[2020-04-05] MEDS ORDERED: FOSAMAX70 MG PO (20:23)
[2020-04-05] MEDS ORDERED: NEURONTIN300 MG PO (20:24)
[2020-04-05] MEDS ORDERED: PAXIL40 M1 PO (20:26)
[2020-04-05] MEDS ORDERED: CLON2 PO (20:26)
[2020-04-05] MEDS ORDERED: PARO20 PO (20:26)
[2020-04-05] MEDS ORDERED: PANT40 PO (20:27)
[2020-04-05 23:44] LABS: Albumin, Blood 3.4 g/dL (3.4-5.0); Anion Gap 5 mmol/L (6-16); Blood Urea Nitrogen 29 mg/dL (8-24); Bun/Creatinine Ratio 16.5 (12.0-20.0); CO2, Blood 29 mmol/L (21-32); Calcium, Blood 8.6 mg/dL (8.5-10.1); Chloride, Blood 100 mmol/L (98-108); Creatinine, Blood 1.76 mg/dL (0.40-1.00); Glomerular Filtration Rate 31 (60-); Glucose, Blood 95 mg/dL (70-99); Phosphorus, Blood 4.2 mg/dL (2.5-4.9); Potassium, Blood 4.6 mmol/L (3.5-5.5); Sodium, Blood 134 mmol/L (136-145)
[2020-04-06 00:01] LABS: Carbamazepine 8.8 ug/mL (4.0-12.0)
[2020-04-06] MEDS ORDERED: VALA500 PO (02:36)
[2020-04-06] MEDS ORDERED: CARB200 PO (02:39)
[2020-04-06 05:34] LABS: BASOPHILS ABSOLUTE AUTO 0.03 K/mm3 (0.00-0.23); BASOPHILS PERCENT AUTO 1 % (0-2); EOSINOPHILS ABSOLUTE AUTO 0.09 K/mm3 (0.00-0.68); EOSINOPHILS PERCENT AUTO 2 % (0-6); Hematocrit 36.2 % (33.0-51.0); Hemoglobin 11.3 g/dL (11.5-16.0); IMMATURE GRAN ABSOLUTE AUTO 0.02 K/mm3 (0.00-0.10); IMMATURE GRAN PERCENT AUTO 0 % (0-1); LYMPHOCYTES ABSOLUTE AUTO 1.64 K/mm3 (0.84-5.20); LYMPHOCYTES PERCENT AUTO 28 % (21-46); MONOCYTES ABSOLUTE AUTO 0.71 K/mm3 (0.16-1.47); MONOCYTES PERCENT AUTO 12 % (4-13); Mean Corpuscular HGB Conc 31.2 g/dL (31.5-36.5); Mean Corpuscular Volume 96 fL (80-100); Mean Platelet Volume 9.9 fL (9.1-12.4); NEUTROPHILS ABSOLUTE AUTO 3.45 K/mm3 (1.96-9.15); NEUTROPHILS PERCENT AUTO 58 % (41-73); Platelet Count 241 K/mm3 (150-400); RDW Coefficient Variation 12.8 % (11.7-14.2); Red Blood Cell Count 3.77 M/mm3 (3.80-5.20); White Blood Cell Count 5.94 K/mm3 (4.00-11.30)
[2020-04-06 05:53] LABS: Calcium, Blood 8.7 mg/dL (8.5-10.1); Creatinine, Blood 1.67 mg/dL (0.40-1.00); Potassium, Blood 4.6 mmol/L (3.5-5.5)
--- NOTE | 2020-04-06 06:41 | NUR ---
NITRATING ACID MIXER SUMMARY NEW ADMIT FROM THE ED TONIGHT. PT AAOX3 BUT IS CONFUSED ABOUT THE DATE AND IS EXTREMELY FORGETFUL. PT OFTEN ASKS NAME OF STAFF THAT SHE HAS INTERACTED WITH NUMEROUS TIMES. OFTEN ASKS THE SAME QUESTIONS OVER AND OVER. CHRONIC LEFT SIDE DEFECITS, L HAND ACTUALLY CONTRACTURED CLOSED COMPLETELY. L ARM IN SLING FROM RECENT ELBOW FX. PT COMPLAINS OF PAIN OF THE LEFT ARM AND BACK, MEDICATED WITH TYLENOL AND IV FENTANYL WITH SOME RELIEF. PT TOO WEAK TO AMBULATE, HAVE BEEN ASSISTING HER WITH THE BEDPAN. VOIDING WELL. ON IV FLUIDS, KIDNEY FUNCTION IMPROVING. HYPERTENSIVE WITH SBP 170-180'S, GIVEN PRN HYDRALAZINE. SBP NOW 160'S. OTHER VSS, WILL CONTINUE TO MONITOR.
--- NOTE | 2020-04-06 10:27 | NUR ---
PATIENT IS VERY FORGETFUL. I HAVE EDUCATED HER ON THE HOURLY ROUNDING AND SHE CONTINUES TO CALL REGULARLY. I WILL CONTINUE TO EDUCATE HER ON WHAT IS GOING ON AND THE HOURLY ROUNDING.
--- NOTE | 2020-04-06 17:51 | NUR ---
SHIFT SUMMARY PATIENT IS ALERT TO SELF AND FAMILY. SHE DENIES ANY OTHER CONCERNS BUT STATES SHE IS HAVING PAIN. SHE IS NOT HAVING ANY NONVERBAL SIGNS OF PAIN, UNLESS FAMILY IS IN THE ROOM. SHE IS NOT WANTING TO GET UP BUT DOES WHEN FAMILY IS IN THE ROOM. SHE REPORTS THAT SHE IS HAVING PAIN IN THAT ELBOW. CALLED [employer] FOR A SLING.
--- NOTE | 2020-04-06 22:20 | NUR ---
BP 192/96 AND IV APRESOLINE 10 MG GIVEN PER EMAR FOR SBP>160. BP 168/86 ON REASSESSMENT. WILL CONTINUE TO MONITOR.
--- NOTE | 2020-04-07 04:21 | NUR ---
SHIFT SUMMARY PATIENT CONFUSED T/O THE SHIFT. CONTINUAL USE OF CALL LIGHT T/O SHIFT. PATIENT EDUCATED ON USE OF CALL LIGHT AND ROUNDING. NOT ABLE TO FOLLOW DIRECTIONS AT THIS TIME. BP ELEVATED (SEE NOTE) AND IV APRESOLINE 10 MG GIVEN PER EMAR. PIV REMAINS INTACT. NS INFUSING AT 100 mL/HR. LEFT ARM IN SLING. LEFT HAND CONTRACTURES. REPORTED LEFT SIDE PAIN AND TYLENOL 650 MG GIVEN PER EMAR. DENIES SOB AND N/V. CALL LIGHT IN REACH. BED IN LOWEST POSITION. WILL CONTINUE TO MONITOR UNTIL DAY SHIFT NURSE ASSUMES CARE.
[2020-04-07 05:27] LABS: BASOPHILS ABSOLUTE AUTO 0.03 K/mm3 (0.00-0.23); BASOPHILS PERCENT AUTO 1 % (0-2); EOSINOPHILS ABSOLUTE AUTO 0.07 K/mm3 (0.00-0.68); EOSINOPHILS PERCENT AUTO 1 % (0-6); Hematocrit 39.1 % (33.0-51.0); Hemoglobin 12.5 g/dL (11.5-16.0); IMMATURE GRAN ABSOLUTE AUTO 0.01 K/mm3 (0.00-0.10); IMMATURE GRAN PERCENT AUTO 0 % (0-1); LYMPHOCYTES ABSOLUTE AUTO 1.39 K/mm3 (0.84-5.20); LYMPHOCYTES PERCENT AUTO 22 % (21-46); MONOCYTES ABSOLUTE AUTO 0.69 K/mm3 (0.16-1.47); MONOCYTES PERCENT AUTO 11 % (4-13); Mean Corpuscular Volume 94 fL (80-100); Mean Platelet Volume 9.9 fL (9.1-12.4); NEUTROPHILS ABSOLUTE AUTO 4.15 K/mm3 (1.96-9.15); NEUTROPHILS PERCENT AUTO 65 % (41-73); Platelet Count 250 K/mm3 (150-400); RDW Coefficient Variation 12.9 % (11.7-14.2); RDW Standard Deviation 43.8 fL (35.1-46.3); Red Blood Cell Count 4.16 M/mm3 (3.80-5.20); White Blood Cell Count 6.34 K/mm3 (4.00-11.30)
[2020-04-07 05:50] LABS: Bun/Creatinine Ratio 13.9 (12.0-20.0); Calcium, Blood 9.2 mg/dL (8.5-10.1); Creatinine, Blood 1.22 mg/dL (0.40-1.00); Potassium, Blood 4.1 mmol/L (3.5-5.5)
[2020-04-07] MEDS ORDERED: SUBOXONE 8 MG-1 EACH SL (12:31)
--- NOTE | 2020-04-07 13:03 | NUR ---
PATIENT AND SON GIVEN DISCHARGE INSTRUCTIONS. ALL QUESTIONS ANSWERED. SUBOXONE HARDSCRIPT HELD PER DR MEDEIROS, PATIENT HAS RX AT HOME. IV REMOVED FROM PATIENT. PATIENT CURRENTLY IN ROOM GETTING READY FOR DISCHARGING HOME.
== END 2020-04-07 13:47 | disposition home or self-care (01) | DRG 682 ==
LOC: ER 14:38 → MEDS 14:39
PROVIDERS: Family Medicine; Physician Assistant; ADMIT Family Medicine
DX: N17.9 Acute kidney failure, unspecified (principal); G92 Toxic encephalopathy; I82.502 Chronic embolism and thrombosis of unspecified deep veins of left lower extremity; E87.1 Hypo-osmolality and hyponatremia; G81.94 Hemiplegia, unspecified affecting left nondominant side; F41.9 Anxiety disorder, unspecified; J44.9 Chronic obstructive pulmonary disease, unspecified; W19.XXXA Unspecified fall, initial encounter; Z91.81 History of falling; I69.311 Memory deficit following cerebral infarction; S42.402D Unspecified fracture of lower end of left humerus, subsequent encounter for fracture with routine healing; G89.4 Chronic pain syndrome; G40.909 Epilepsy, unspecified, not intractable, without status epilepticus; E11.9 Type 2 diabetes mellitus without complications; F32.9 Major depressive disorder, single episode, unspecified; I10 Essential (primary) hypertension; F51.04 Psychophysiologic insomnia; K21.9 Gastro-esophageal reflux disease without esophagitis; Z87.891 Personal history of nicotine dependence; F03.90 Unspecified dementia, unspecified severity, without behavioral disturbance, psychotic disturbance, mood disturbance, and anxiety; Z99.3 Dependence on wheelchair; E78.5 Hyperlipidemia, unspecified
CPT/HCPCS: 36415; 70450; 76770; 80048; 80053; 80069; 80156; 81001; 85025; 87086; 93005; 93010; 96374; 96375; 96376; 97110; 97162; 97166; 97530; 99285-25; A9270; A9270-GY; G0378; J0360; J0572; J1644; J2405; J3010; J7030

== ENCOUNTER 2020-09-03 08:46 | Day surgery (SDC) | payer MEDICARE, BC ==
[~2020-09-03] VITALS: Ht 157.5 cm; Wt 67.5 kg
[~2020-09-03 08:46] MED LIST changes: +AMIT50 PO; +AMIT75 PO; +ATOR20 PO; +BUPRENORPHINE HC2 MG SL; +CARBATROL PO; +CLON1 PO; +CLON2 PO; +Epitol200 MG PO; +FOSAMAX70 MG PO; +GABA300 PO; +METF500 PO; +MONT10T PO; +NEURONTIN300 MG PO; +PANT40 PO; +PARO20 PO; +PAXIL40 M1 PO; +PRINIVIL10 MG PO; +Prinivil10 MG PO; +SUBOXONE 8 MG-1 EACH SL; +VALA500 PO
--- NOTE | 2020-09-03 09:18 | NUR ---
PT TO SDS VIA WC, ESCORTED BY SO. History, Chart, Medications and Allergies reviewed before start of procedure. Lungs clear T/O to Auscultation. Patient confirms NPO status and agrees with scheduled surgery. IV STARTED, CHEM 142. REPOSITIONED IN BED FOR COMFORT.
--- NOTE | 2020-09-03 10:15 | NUR ---
09/03/20 1015 Tamar Palmer NO PREOP ANTIBIOTICS ORDERED
--- NOTE | 2020-09-03 12:29 | NUR ---
DISCHARGE SUMMARY PT A&OX4, VSS, VOIDED, [place] PO, 1 PAIN PILL PROVIDED, ASSISTED WITH DRESSING, TOILETING AND TRANSFERRING TO , DELIVERED PT TO HER CAPRI, WHO SIGNED SCRAP SORTER, TO GO HOME WITH ALL PERSONAL POSSESSIONS, IV DC'D.
== END 2020-09-03 12:29 | disposition home or self-care (01) ==
LOC: ORSCMMR 08:46 → ORD 10:00 → ORSCMMR 12:29
PROVIDERS: Surgery
PROC: 0D8R3ZZ Division of Anal Sphincter, Percutaneous Approach (ICD-10-PCS; principal; 2020-09-03 10:00)
DX: K60.2 Anal fissure, unspecified (principal); K64.4 Residual hemorrhoidal skin tags; K64.8 Other hemorrhoids; J44.9 Chronic obstructive pulmonary disease, unspecified; K21.9 Gastro-esophageal reflux disease without esophagitis; E78.5 Hyperlipidemia, unspecified; F17.210 Nicotine dependence, cigarettes, uncomplicated; E11.9 Type 2 diabetes mellitus without complications; G40.909 Epilepsy, unspecified, not intractable, without status epilepticus; Z79.899 Other long term (current) drug therapy; Z79.84 Long term (current) use of oral hypoglycemic drugs
CPT/HCPCS: 82947; A9270; J1100; J1885; J2250; J2405; J2704; J3010; J7120

== ENCOUNTER 2020-10-29 08:31 | Emergency (ER) | payer MEDICARE, BC ==
[~2020-10-29] VITALS: Ht 157.5 cm; Wt 68.0 kg
[2020-10-29 09:19] LABS: BASOPHILS ABSOLUTE AUTO 0.06 K/mm3 (0.00-0.23); BASOPHILS PERCENT AUTO 1 % (0-2); EOSINOPHILS ABSOLUTE AUTO 0.05 K/mm3 (0.00-0.68); EOSINOPHILS PERCENT AUTO 0 % (0-6); Hemoglobin 12.8 g/dL (11.5-16.0); IMMATURE GRAN ABSOLUTE AUTO 0.05 K/mm3 (0.00-0.10); IMMATURE GRAN PERCENT AUTO 0 % (0-1); LYMPHOCYTES ABSOLUTE AUTO 1.47 K/mm3 (0.84-5.20); LYMPHOCYTES PERCENT AUTO 12 % (21-46); MONOCYTES ABSOLUTE AUTO 0.07 K/mm3 (0.16-1.47); MONOCYTES PERCENT AUTO 1 % (4-13); Mean Corpuscular HGB 31.1 pg (26.0-34.0); Mean Corpuscular Volume 97 fL (80-100); Mean Platelet Volume 9.4 fL (9.1-12.4); NEUTROPHILS ABSOLUTE AUTO 10.34 K/mm3 (1.96-9.15); NEUTROPHILS PERCENT AUTO 86 % (41-73); Platelet Count 309 K/mm3 (150-400); RDW Coefficient Variation 12.5 % (11.7-14.2); RDW Standard Deviation 44.6 fL (35.1-46.3); Red Blood Cell Count 4.12 M/mm3 (3.80-5.20); White Blood Cell Count 12.04 K/mm3 (4.00-11.30)
[2020-10-29 09:31] LABS: Alanine Aminotransfer (ALT/SGP 24 U/L (12-78); Albumin, Blood 3.9 g/dL (3.4-5.0); Alk Phos 129 U/L (50-136); Anion Gap 8 mmol/L (6-16); Aspartate Aminotrans (AST/SGOT 20 U/L (12-37); Bilirubin, Total 0.4 mg/dL (0.1-1.0); Blood Urea Nitrogen 18 mg/dL (8-24); Bun/Creatinine Ratio 34.9 (12.0-20.0); CO2, Blood 26 mmol/L (21-32); Calcium, Blood 10.7 mg/dL (8.5-10.1); Chloride, Blood 100 mmol/L (98-108); Creatinine, Blood 0.52 mg/dL (0.40-1.00); Glomerular Filtration Rate >60 (60-); Glucose, Blood 212 mg/dL (70-99); Potassium, Blood 3.7 mmol/L (3.5-5.5); Sodium, Blood 134 mmol/L (136-145); Total Protein, Blood 7.9 g/dL (6.4-8.2)
[2020-10-29 11:04] LABS: Source, Urine Catheter
[2020-10-29 11:23] LABS: Bilirubin, Urine Neg (Neg); Blood, Urine 1+ (Neg); Glucose Qualitative, Urine Neg (Neg); Ketones, Urine Neg (Neg); Leukocyte Esterase, Urine 1+ (Neg); Nitrite, Urine Neg (Neg); Protein, Urine 1+ (Neg); Specific Gravity, Urine 1.015 (1.003-1.022); Urobilinogen, Urine 1+ (Normal)
[2020-10-29 11:36] LABS: Appearance, Urine Clear (Clear); Color, Urine Yellow (P-Yellow)
[2020-10-29 11:38] LABS: Bacteria Few /hpf; Red Blood Cells, Urine 0-2 /hpf (0-2); Squamous Epithelial Cells Few /hpf (Few)
[2020-10-29] MEDS ORDERED: AMOCLA875 PO (12:41)
== END 2020-10-29 13:24 | disposition home or self-care (01) ==
LOC: ER 08:31
PROVIDERS: Physician Assistant
DX: K52.9 Noninfective gastroenteritis and colitis, unspecified (principal); E11.9 Type 2 diabetes mellitus without complications; K21.9 Gastro-esophageal reflux disease without esophagitis; E78.5 Hyperlipidemia, unspecified; G40.909 Epilepsy, unspecified, not intractable, without status epilepticus; J44.9 Chronic obstructive pulmonary disease, unspecified; Z86.718 Personal history of other venous thrombosis and embolism; Z79.899 Other long term (current) drug therapy
CPT/HCPCS: 36415; 74177; 80053; 81001; 83690; 85025; 87086; 99284-25; P9612; Q9967

== ENCOUNTER → 2020-11-15 | Outpatient (CLI) | payer MEDICARE, BC ==
[~2020-11-15] MED LIST changes: +AMOCLA875 PO
== END | disposition home or self-care (01) ==
LOC: LAB SHORT 18:45
DX: N39.0 Urinary tract infection, site not specified (principal)
CPT/HCPCS: 87077; 87086; 87186

== ENCOUNTER 2020-12-31 11:40 | Emergency (ER) | payer MEDICARE, BC ==
[~2020-12-31] VITALS: Ht 157.5 cm; Wt 68.0 kg
[2020-12-31 12:05] LABS: Source, Urine Catheter
[2020-12-31 12:10] LABS: Appearance, Urine Hazy (Clear); Bilirubin, Urine Neg (Neg); Blood, Urine 5+ (Neg); Color, Urine Yellow (P-Yellow); Glucose Qualitative, Urine Neg (Neg); Ketones, Urine Neg (Neg); Leukocyte Esterase, Urine 3+ (Neg); Nitrite, Urine Neg (Neg); Protein, Urine 2+ (Neg); Specific Gravity, Urine 1.025 (1.003-1.022); Urobilinogen, Urine NORM (Normal)
[2020-12-31 12:59] LABS: Bacteria Mod /hpf; Squamous Epithelial Cells Few /hpf (Few); White Blood Cells, Urine TNTC /hpf (0-5)
[2020-12-31] MEDS ORDERED: CEPH500 PO (13:50)
== END 2020-12-31 14:06 | disposition home or self-care (01) ==
LOC: ER 11:40
PROVIDERS: Physician Assistant
DX: N39.0 Urinary tract infection, site not specified (principal); J44.9 Chronic obstructive pulmonary disease, unspecified; E11.9 Type 2 diabetes mellitus without complications; K21.9 Gastro-esophageal reflux disease without esophagitis; E78.5 Hyperlipidemia, unspecified; Z79.899 Other long term (current) drug therapy
CPT/HCPCS: 81001; 87086; 99283

== ENCOUNTER → 2021-03-08 | Outpatient (CLI) | payer MEDICARE, BC ==
[~2021-03-08] MED LIST changes: +CEPH500 PO
[2021-03-11 11:36] LABS: Bacteria Rare /hpf; Red Blood Cells, Urine Not Seen /hpf (0-2); Squamous Epithelial Cells Few /hpf (Few); White Blood Cells, Urine 0-2 /hpf (0-5)
== END | disposition home or self-care (01) ==
LOC: LAB 15:00 → LAB SHORT 15:00 → LAB FUT 03-11 08:20 → EDSTATUS 03-11 08:20
PROVIDERS: Internal Medicine
DX: N39.0 Urinary tract infection, site not specified (principal)
CPT/HCPCS: 81015; 87086

== ENCOUNTER → 2021-07-22 | Outpatient (CLI) | payer MEDICARE, BC ==
[2021-07-22 19:56] LABS: BASOPHILS ABSOLUTE AUTO 0.03 K/mm3 (0.00-0.23); BASOPHILS PERCENT AUTO 0 % (0-2); EOSINOPHILS ABSOLUTE AUTO 0.04 K/mm3 (0.00-0.68); EOSINOPHILS PERCENT AUTO 1 % (0-6); Hematocrit 39.2 % (33.0-51.0); Hemoglobin 12.3 g/dL (11.5-16.0); IMMATURE GRAN ABSOLUTE AUTO 0.03 K/mm3 (0.00-0.10); IMMATURE GRAN PERCENT AUTO 0 % (0-1); LYMPHOCYTES ABSOLUTE AUTO 2.02 K/mm3 (0.84-5.20); LYMPHOCYTES PERCENT AUTO 24 % (21-46); MONOCYTES ABSOLUTE AUTO 0.56 K/mm3 (0.16-1.47); MONOCYTES PERCENT AUTO 7 % (4-13); Mean Corpuscular HGB 29.7 pg (26.0-34.0); Mean Corpuscular HGB Conc 31.4 g/dL (31.5-36.5); Mean Corpuscular Volume 95 fL (80-100); Mean Platelet Volume 10.7 fL (9.1-12.4); NEUTROPHILS ABSOLUTE AUTO 5.77 K/mm3 (1.96-9.15); NEUTROPHILS PERCENT AUTO 68 % (41-73); Platelet Count 357 K/mm3 (150-400); RDW Coefficient Variation 13.2 % (11.7-14.2); RDW Standard Deviation 46.6 fL (35.1-46.3); Red Blood Cell Count 4.14 M/mm3 (3.80-5.20); White Blood Cell Count 8.45 K/mm3 (4.00-11.30)
[2021-07-22 20:00] LABS: Alanine Aminotransfer (ALT/SGP 24 U/L (12-78); Albumin, Blood 3.9 g/dL (3.4-5.0); Albumin/Globulin Ratio 0.9 (0.8-1.8); Alk Phos 100 U/L (50-136); Anion Gap 6 mmol/L (6-16); Aspartate Aminotrans (AST/SGOT 16 U/L (12-37); Bilirubin, Total 0.3 mg/dL (0.1-1.0); Blood Urea Nitrogen 17 mg/dL (8-24); Bun/Creatinine Ratio 39.6 (12.0-20.0); CO2, Blood 30 mmol/L (21-32); Calcium, Blood 9.8 mg/dL (8.5-10.1); Carbamazepine 4.6 ug/mL (4.0-12.0); Chloride, Blood 100 mmol/L (98-108); Creatinine, Blood 0.43 mg/dL (0.40-1.00); Globulin, Blood 4.3 g/dL (2.2-4.0); Glomerular Filtration Rate >60 (60-); Glucose, Blood 212 mg/dL (70-99); Potassium, Blood 3.7 mmol/L (3.5-5.5); Sodium, Blood 136 mmol/L (136-145); Thyroid Stimulating Hormone 0.859 uIU/mL (0.360-4.800); Total Protein, Blood 8.2 g/dL (6.4-8.2)
== END | disposition home or self-care (01) ==
LOC: LAB SHORT 18:11
PROVIDERS: Internal Medicine
DX: Z13.29 Encounter for screening for other suspected endocrine disorder (principal); G40.909 Epilepsy, unspecified, not intractable, without status epilepticus; E11.9 Type 2 diabetes mellitus without complications; I10 Essential (primary) hypertension
CPT/HCPCS: 80053; 80156; 83036; 84443; 85025

== ENCOUNTER 2021-09-07 12:47 | Emergency (ER) | payer MEDICARE, BC ==
[~2021-09-07] VITALS: Ht 157.5 cm; Wt 68.0 kg
[~2021-09-07 12:47] MED LIST changes: +CARB100ER PO; -CARBATROL PO
[2021-09-07 14:27] LABS: Source, Urine Clean Catch
[2021-09-07 14:31] LABS: Bilirubin, Urine Neg (Neg); Blood, Urine 1+ (Neg); Glucose Qualitative, Urine Neg (Neg); Ketones, Urine Neg (Neg); Leukocyte Esterase, Urine Neg (Neg); Nitrite, Urine Neg (Neg); Urobilinogen, Urine NORM (Normal)
[2021-09-07 14:46] LABS: Protein, Urine 2+ (Neg)
[2021-09-07 14:47] LABS: Appearance, Urine Clear (Clear); Color, Urine Pale Yellow (P-Yellow)
[2021-09-07 14:49] LABS: Amorphous Light (0-Heavy); Bacteria Mod /hpf; Squamous Epithelial Cells Rare /hpf (Few); White Blood Cells, Urine 0-2 /hpf (0-5); Yeast/Fungi Urine Rare /hpf
[2021-09-07 14:51] LABS: BASOPHILS ABSOLUTE AUTO 0.03 K/mm3 (0.00-0.23); BASOPHILS PERCENT AUTO 1 % (0-2); EOSINOPHILS ABSOLUTE AUTO 0.09 K/mm3 (0.00-0.68); EOSINOPHILS PERCENT AUTO 1 % (0-6); Hematocrit 38.6 % (33.0-51.0); Hemoglobin 12.4 g/dL (11.5-16.0); IMMATURE GRAN ABSOLUTE AUTO 0.02 K/mm3 (0.00-0.10); IMMATURE GRAN PERCENT AUTO 0 % (0-1); LYMPHOCYTES PERCENT AUTO 27 % (21-46); MONOCYTES ABSOLUTE AUTO 0.71 K/mm3 (0.16-1.47); MONOCYTES PERCENT AUTO 11 % (4-13); Mean Corpuscular HGB 29.7 pg (26.0-34.0); Mean Corpuscular HGB Conc 32.1 g/dL (31.5-36.5); Mean Corpuscular Volume 93 fL (80-100); Mean Platelet Volume 9.3 fL (9.1-12.4); NEUTROPHILS ABSOLUTE AUTO 3.68 K/mm3 (1.96-9.15); NEUTROPHILS PERCENT AUTO 59 % (41-73); Platelet Count 310 K/mm3 (150-400); RDW Coefficient Variation 13.3 % (11.7-14.2); RDW Standard Deviation 45.9 fL (35.1-46.3); Red Blood Cell Count 4.17 M/mm3 (3.80-5.20); White Blood Cell Count 6.23 K/mm3 (4.00-11.30)
[2021-09-07 15:18] LABS: Alanine Aminotransfer (ALT/SGP 25 U/L (12-78); Albumin, Blood 3.9 g/dL (3.4-5.0); Alk Phos 100 U/L (50-136); Anion Gap 6 mmol/L (6-16); Aspartate Aminotrans (AST/SGOT 13 U/L (12-37); Bilirubin, Total 0.2 mg/dL (0.1-1.0); Blood Urea Nitrogen 15 mg/dL (8-24); Bun/Creatinine Ratio 29.2 (12.0-20.0); CO2, Blood 31 mmol/L (21-32); Calcium, Blood 9.6 mg/dL (8.5-10.1); Chloride, Blood 100 mmol/L (98-108); Creatinine, Blood 0.51 mg/dL (0.40-1.00); Glomerular Filtration Rate >60 (60-); Glucose, Blood 96 mg/dL (70-99); Potassium, Blood 3.6 mmol/L (3.5-5.5); Sodium, Blood 137 mmol/L (136-145); Total Protein, Blood 7.9 g/dL (6.4-8.2)
== END 2021-09-07 17:45 | disposition home or self-care (01) ==
LOC: ER 12:47
PROVIDERS: Physician Assistant
DX: I82.412 Acute embolism and thrombosis of left femoral vein (principal); J44.9 Chronic obstructive pulmonary disease, unspecified; G40.909 Epilepsy, unspecified, not intractable, without status epilepticus; G47.00 Insomnia, unspecified; E11.9 Type 2 diabetes mellitus without complications; E78.5 Hyperlipidemia, unspecified; Z79.899 Other long term (current) drug therapy
CPT/HCPCS: 36415; 74177; 80053; 81001; 83690; 85025; 87086; 93971; 96374-59; 96375; 99284-25; A9270; J2270; J2405; Q9967

== ENCOUNTER 2021-09-10 14:43 | Emergency (ER) | payer MEDICARE, BC ==
[~2021-09-10] VITALS: Ht 157.5 cm; Wt 69.8 kg
[2021-09-10] MEDS ORDERED: Norco 5-325 Ta1 EACH PO (15:12)
== END 2021-09-10 15:11 | disposition left against medical advice (07) ==
LOC: ER 14:43
DX: R10.32 Left lower quadrant pain (principal); Z79.899 Other long term (current) drug therapy; J44.9 Chronic obstructive pulmonary disease, unspecified; E11.9 Type 2 diabetes mellitus without complications; G40.909 Epilepsy, unspecified, not intractable, without status epilepticus; K21.9 Gastro-esophageal reflux disease without esophagitis; E78.5 Hyperlipidemia, unspecified; Z86.718 Personal history of other venous thrombosis and embolism; Z53.21 Procedure and treatment not carried out due to patient leaving prior to being seen by health care provider
CPT/HCPCS: 99282

== ENCOUNTER 2022-03-13 11:02 | Day surgery (SDC) | payer MEDICARE, BC ==
[~2022-03-13] VITALS: Ht 157.5 cm; Wt 71.9 kg
[~2022-03-13 11:02] MED LIST changes: +ALEN70 PO
--- NOTE | 2022-03-13 12:17 | NUR ---
History, Chart, Medications and Allergies reviewed before start of procedure. Lungs clear T/O to Auscultation. Pre-Op teaching done. Pt verbalizes understanding. Patient States Post-Procedure ride home has been arranged.
--- NOTE | 2022-03-13 16:02 | NUR ---
SBAR DR SWANN NOTIFIED OF PT PAIN AND REQUEST FOR AT HOME PRESCRIPTION. DR SWANN SPOKE WITH PT ABOUT PAIN MANAGEMENT PLAN THAT HIS MA HAD SET UP WITH PT PCP. AT THIS TIME IS CONTEMPLATING AN EXTENDED RECOVERY FOR PT. NURSING ETHICS OFFICER NOTIFIED
--- NOTE | 2022-03-13 16:19 | NUR ---
PT AT BEDSIDE. DR SWANN NOTIFIED, AND NOW AT BEDSIDE TO SPEAK WITH PT.
--- NOTE | 2022-03-13 16:28 | NUR ---
DR SWANN SPOKE WITH PT AND ABOUT PLAN. PT REGULAR PAIN MED HAD BEEN INCREASED IN FREQUENCY BY PCP FOR BETTER PAIN COVERAGE, PT VERBALIZED UNDERSTANDING AND STATED SHE FELT COMFORTABLE GOING HOME TONIGHT. PT IS TO BE DISCHARGED HOME TONIGHT WITH .
--- NOTE | 2022-03-13 16:30 | NUR ---
ASSUMED PATIENT CARE, D/C INSTRUCTIONS REVIEWED AND GIVEN TO PT AND .
== END 2022-03-13 22:41 | disposition home or self-care (01) ==
LOC: ORSCMMR 11:02 → ORD 12:30 → ORSCMMR 12:30
PROVIDERS: Orthopaedic Surgery
PROC: 0X6 Anatomical Regions, Upper Extremities, Detachment (ICD-10-PCS; principal; 2022-03-13 12:30)
DX: M24.542 Contracture, left hand (principal); M20.092 Other deformity of left finger(s); I10 Essential (primary) hypertension; E78.5 Hyperlipidemia, unspecified; J44.9 Chronic obstructive pulmonary disease, unspecified; Z87.891 Personal history of nicotine dependence; K21.9 Gastro-esophageal reflux disease without esophagitis; E11.9 Type 2 diabetes mellitus without complications; F41.9 Anxiety disorder, unspecified; Z79.84 Long term (current) use of oral hypoglycemic drugs; G40.909 Epilepsy, unspecified, not intractable, without status epilepticus; Z79.899 Other long term (current) drug therapy; F41.0 Panic disorder [episodic paroxysmal anxiety]
CPT/HCPCS: 82947; 88300; A9270; J0690; J1100; J2250; J2370; J2405; J2704; J2795; J3010; J7120

== ENCOUNTER → 2022-06-03 | Outpatient (CLI) | payer MEDICARE, BC | LOC: LAB 16:10 → LAB SHORT 16:10 → LAB FUT 01-17 16:20 | DX: N39.0 Urinary tract infection, site not specified (principal) | CPT/HCPCS: 87086 ==

== ENCOUNTER 2023-07-22 12:07 | Emergency (ER) | payer MEDICARE, BC ==
[~2023-07-22] VITALS: Ht 157.5 cm; Wt 70.3 kg
[2023-07-22 14:37] VITALS: BP 146/84
== END 2023-07-22 14:37 | disposition home or self-care (01) ==
LOC: ER 12:07
DX: K59.00 Constipation, unspecified (principal); K21.9 Gastro-esophageal reflux disease without esophagitis; E11.9 Type 2 diabetes mellitus without complications; E78.5 Hyperlipidemia, unspecified; J44.9 Chronic obstructive pulmonary disease, unspecified; Z79.84 Long term (current) use of oral hypoglycemic drugs; Z79.899 Other long term (current) drug therapy
CPT/HCPCS: 74018; 99283-25; A9270

== ENCOUNTER 2024-03-28 12:31 | Emergency (ER) | payer OTHER ==
[~2024-03-28] VITALS: Ht 157.5 cm; Wt 66.7 kg
[2024-03-28 12:36] VITALS: BP 131/69
[2024-03-28 12:52] LABS: Source, Urine Clean Catch
[2024-03-28 12:58] LABS: Appearance, Urine Cloudy (Clear); Bilirubin, Urine Neg (Neg); Blood, Urine 5+ (Neg); Color, Urine Yellow (P-Yellow); Glucose Qualitative, Urine Neg (Neg); Ketones, Urine Neg (Neg); Leukocyte Esterase, Urine 3+ (Neg); Nitrite, Urine Neg (Neg); Protein, Urine 2+ (Neg); Specific Gravity, Urine 1.025 (1.003-1.022); Urobilinogen, Urine NORM (Normal)
[2024-03-28 13:11] LABS: Red Blood Cells, Urine 50-100 /hpf (0-2); White Blood Cells, Urine 50-100 /hpf (0-5)
[2024-03-28 13:12] LABS: Bacteria Mod /hpf; Mucus Light (0-Heavy); Squamous Epithelial Cells Rare /hpf (Few)
[2024-03-28] MEDS ORDERED: Trimethoprim/Sulfamethoxazole DS Tab PO ONE (13:35)
[2024-03-28] MEDS ORDERED: Bactrim Ds Tab1 EACH PO (13:45)
== END 2024-03-28 14:00 | disposition home or self-care (01) ==
LOC: ER 12:31
PROVIDERS: Physician Assistant
DX: N39.0 Urinary tract infection, site not specified (principal); J44.9 Chronic obstructive pulmonary disease, unspecified; E11.9 Type 2 diabetes mellitus without complications; G40.909 Epilepsy, unspecified, not intractable, without status epilepticus; F32.9 Major depressive disorder, single episode, unspecified; Z87.891 Personal history of nicotine dependence; Z79.899 Other long term (current) drug therapy; Z79.84 Long term (current) use of oral hypoglycemic drugs
CPT/HCPCS: 81001; 87077; 87086; 87186; 99283; A9270

== ENCOUNTER 2024-07-15 16:21 | Emergency (ER) | payer OTHER ==
[~2024-07-15] VITALS: Ht 157.5 cm; Wt 77.6 kg
[~2024-07-15 16:21] MED LIST changes: +Bactrim Ds Tab1 EACH PO
[2024-07-15 21:00] VITALS: BP 120/80
== END 2024-07-15 21:45 | disposition home or self-care (01) ==
LOC: ER 16:21
DX: S00.01XA Abrasion of scalp, initial encounter (principal); J44.9 Chronic obstructive pulmonary disease, unspecified; G47.00 Insomnia, unspecified; K21.9 Gastro-esophageal reflux disease without esophagitis; E78.5 Hyperlipidemia, unspecified; W18.30XA Fall on same level, unspecified, initial encounter; Z87.891 Personal history of nicotine dependence; Z79.84 Long term (current) use of oral hypoglycemic drugs; Z79.899 Other long term (current) drug therapy
CPT/HCPCS: 70450; 72125; 99284-25

== ENCOUNTER 2024-07-19 12:40 | Observation (INO) | payer OTHER ==
[~2024-07-19] VITALS: Ht 157.5 cm; Wt 68.5 kg
[~2024-07-19 12:40] MED LIST changes: +BUPRENORPHIN-N1 EAC5 SL; -CARB100ER PO; +CARBATROL300 M1 PO; +Cyclobenzaprine5 MG PO; +PAXIL40 MG PO; -SUBOXONE 8 MG-1 EACH SL
[2024-07-19 17:46] LABS: Source, Urine Straight Cath
[2024-07-19 17:48] LABS: BASOPHILS ABSOLUTE AUTO 0.03 K/mm3 (0.00-0.23); BASOPHILS PERCENT AUTO 0 % (0-2); EOSINOPHILS ABSOLUTE AUTO 0.04 K/mm3 (0.00-0.68); EOSINOPHILS PERCENT AUTO 0 % (0-6); Hematocrit 34.6 % (33.0-51.0); Hemoglobin 11.3 g/dL (11.5-16.0); IMMATURE GRAN ABSOLUTE AUTO 0.06 K/mm3 (0.00-0.10); IMMATURE GRAN PERCENT AUTO 1 % (0-1); LYMPHOCYTES ABSOLUTE AUTO 1.26 K/mm3 (0.84-5.20); LYMPHOCYTES PERCENT AUTO 11 % (21-46); MONOCYTES ABSOLUTE AUTO 1.22 K/mm3 (0.16-1.47); MONOCYTES PERCENT AUTO 10 % (4-13); Mean Corpuscular HGB 32.8 pg (26.0-34.0); Mean Corpuscular HGB Conc 32.7 g/dL (31.5-36.5); Mean Corpuscular Volume 100 fL (80-100); Mean Platelet Volume 9.1 fL (9.1-12.4); NEUTROPHILS ABSOLUTE AUTO 9.41 K/mm3 (1.96-9.15); NEUTROPHILS PERCENT AUTO 78 % (41-73); Platelet Count 329 K/mm3 (150-400); RDW Standard Deviation 47.5 fL (35.1-46.3); Red Blood Cell Count 3.45 M/mm3 (3.80-5.20); White Blood Cell Count 12.02 K/mm3 (4.00-11.30)
[2024-07-19 17:50] LABS: Appearance, Urine Hazy (Clear); Bilirubin, Urine Neg (Neg); Blood, Urine Neg (Neg); Color, Urine Yellow (P-Yellow); Glucose Qualitative, Urine Neg (Neg); Ketones, Urine Neg (Neg); Leukocyte Esterase, Urine 1+ (Neg); Nitrite, Urine Neg (Neg); Protein, Urine 2+ (Neg); Specific Gravity, Urine 1.025 (1.003-1.022); Urobilinogen, Urine NORM (Normal)
[2024-07-19 17:59] LABS: Amorphous Light (0-Heavy); Bacteria Few /hpf; Red Blood Cells, Urine 0-2 /hpf (0-2); Squamous Epithelial Cells Few /hpf (Few)
[2024-07-19 18:11] LABS: Albumin, Blood 3.1 g/dL (3.4-5.0); Albumin/Globulin Ratio 0.7 (0.8-1.8); Bilirubin, Total 0.3 mg/dL (0.1-1.0); Calcium, Blood 9.6 mg/dL (8.5-10.1); Creatinine, Blood 1.28 mg/dL (0.40-1.00); Globulin, Blood 4.6 g/dL (2.2-4.0); Magnesium, Blood 2.3 mg/dL (1.6-2.4); Phosphorus, Blood 4.5 mg/dL (2.5-4.9); Potassium, Blood 4.7 mmol/L (3.5-5.5); Total Protein, Blood 7.7 g/dL (6.4-8.2)
[2024-07-19] MEDS ORDERED: NS 1,000 ML IV SCH ×2 (18:35→20:10)
[2024-07-19] MEDS ORDERED: Ketorolac Tromethamine 15mg Vial IV ONE (19:35)
[2024-07-19] MEDS ORDERED: Ondansetron HCl 2 MG / ML 2ML Vial IV PRN (20:05)
[2024-07-19] MEDS ORDERED: Albuterol 2.5 MG/3 ML VIAL INH PRN (20:10)
[2024-07-19] MEDS ORDERED: Acetaminophen 500 MG Tab PO PRN (20:10)
[2024-07-19] MEDS ORDERED: Cyclobenzaprine HCl 10 MG Tab PO PRN (20:10)
[2024-07-19] MEDS ORDERED: FLU VACC TS2024-25(6MOS UP)/PF 45 MCG/0.5 ML SYRINGE IM ONE (20:10)
[2024-07-19] MEDS ORDERED: buprenorphine HCL 2 MG TAB.SUBL SL SCH (21:00)
[2024-07-19] MEDS ORDERED: Montelukast Sodium 10 MG Tab PO SCH (21:00)
[2024-07-19 22:42] LABS: Adenovirus Not Detected (NOT DETECT); Coronavirus 229E Not Detected (NOT DETECT); Coronavirus HKU1 Not Detected (NOT DETECT); Coronavirus NL63 Not Detected (NOT DETECT); Coronavirus OC43 Not Detected (NOT DETECT); Human Metapneumovirus Not Detected (NOT DETECT); Human Rhinovirus/Enterovirus Not Detected (NOT DETECT); Influenza A/H1 Not Detected (NOT DETECT); Influenza A/H3 Not Detected (NOT DETECT); SARS-Cov-2 (COVID-19), BioFire Not Detected (NOT DETECT)
[2024-07-19 22:43] LABS: Bordetella pertussis Not Detected (NOT DETECT); Chlamydophila pneumoniae Not Detected (NOT DETECT); Influenza A/2009-H1 Not Detected (NOT DETECT); Influenza B Not Detected (NOT DETECT); Mycoplasma pneumoniae Not Detected (NOT DETECT); Parainfluenza Virus 1 Not Detected (NOT DETECT); Parainfluenza Virus 2 Not Detected (NOT DETECT); Parainfluenza Virus 3 Not Detected (NOT DETECT); Parainfluenza Virus 4 Not Detected (NOT DETECT); Respiratory Syncytial Virus Not Detected (NOT DETECT)
[2024-07-19 22:52] LABS: Base Excess Venous -1.6 mmol/L; PCO2 Venous 46.1 mmHg (38-42); pH Blood Venous 7.33 (7.34-7.37)
[2024-07-20] MEDS ORDERED: Insulin Human Lispro 100 Units/ML 3ML Syringe SC SCH
[2024-07-20 03:57] LABS: BASOPHILS ABSOLUTE AUTO 0.02 K/mm3 (0.00-0.23); BASOPHILS PERCENT AUTO 0 % (0-2); EOSINOPHILS ABSOLUTE AUTO 0.13 K/mm3 (0.00-0.68); EOSINOPHILS PERCENT AUTO 1 % (0-6); Hematocrit 28.9 % (33.0-51.0); Hemoglobin 9.2 g/dL (11.5-16.0); IMMATURE GRAN ABSOLUTE AUTO 0.03 K/mm3 (0.00-0.10); IMMATURE GRAN PERCENT AUTO 0 % (0-1); LYMPHOCYTES ABSOLUTE AUTO 2.28 K/mm3 (0.84-5.20); LYMPHOCYTES PERCENT AUTO 23 % (21-46); MONOCYTES ABSOLUTE AUTO 1.08 K/mm3 (0.16-1.47); MONOCYTES PERCENT AUTO 11 % (4-13); Mean Corpuscular HGB 32.2 pg (26.0-34.0); Mean Corpuscular HGB Conc 31.8 g/dL (31.5-36.5); Mean Corpuscular Volume 101 fL (80-100); Mean Platelet Volume 9.1 fL (9.1-12.4); NEUTROPHILS PERCENT AUTO 65 % (41-73); Platelet Count 249 K/mm3 (150-400); RDW Coefficient Variation 13.1 % (11.7-14.2); RDW Standard Deviation 48.5 fL (35.1-46.3); Red Blood Cell Count 2.86 M/mm3 (3.80-5.20); White Blood Cell Count 10.14 K/mm3 (4.00-11.30)
[2024-07-20 04:24] LABS: Magnesium, Blood 2.1 mg/dL (1.6-2.4)
[2024-07-20 04:25] LABS: Albumin, Blood 2.6 g/dL (3.4-5.0); Albumin/Globulin Ratio 0.7 (0.8-1.8); Bilirubin, Total 0.3 mg/dL (0.1-1.0); Bun/Creatinine Ratio 40.9 (12.0-20.0); Calcium, Blood 8.4 mg/dL (8.5-10.1); Creatinine, Blood 1.27 mg/dL (0.40-1.00); Globulin, Blood 3.7 g/dL (2.2-4.0); Potassium, Blood 4.3 mmol/L (3.5-5.5); Total Protein, Blood 6.3 g/dL (6.4-8.2)
[2024-07-20] MEDS ORDERED: Pantoprazole Sodium 20 MG Tab PO SCH (06:00)
[2024-07-20] MEDS ORDERED: Lactated Ringer's 500 ML IV ONE (07:45)
[2024-07-20] MEDS ORDERED: Enoxaparin 40 MG/0.4 ML SYR SC SCH (09:00)
[2024-07-20 15:39] VITALS: BP 171/96
[2024-07-20] MEDS ORDERED: ATOR40TA PO (16:00)
[2024-07-20] MEDS ORDERED: Flexeril5 MG PO (16:01)
[2024-07-20] MEDS ORDERED: GLUCOPHAGE1000 M1 PO (16:02)
[2024-07-20] MEDS ORDERED: Prinivil10 MG PO (16:03)
[2024-07-20 17:47] VITALS: BP 155/86
--- NOTE | 2024-07-20 17:56 | NUR ---
SHIFT SUMMARY PT A&OX2 W/ CONFUSION, TRANSFERRED FROM [facility] TO BED W/ SLIDE SHEET, TOLERATING PO, VOIDING, AND DENIED PAIN. PT HYPERTENSIVE, BUT ASYMPTOMATIC THAT WAS MEDICATED PER EMAR. NS CONT TO INFUSE PER ORDER. DURING EPISODE OF CONFUSION, PT WAS FOUND TO BE APPLYING CHOCOLATE PUDDING TO HER DANNIE AREA. PT REORIENTED AND CLEANED UP. CALL LIGHT WITHIN REACH AND BED ALARM ON.
[2024-07-20] MEDS ORDERED: Lisinopril 10 MG Tab PO SCH (18:00)
--- NOTE | 2024-07-20 18:28 | NUR ---
"Spiritual Care | Pt. request Pt. is awake in bed and warmly welcomed my visit. Spouse and another perosn are at bedside. Pt. verbalized that she was a strong owman of maria. Considered matters of maria and belief as well as her local mu-ism. Pt. had dinner in front of her, so this loan broker kept the visit short. Prayed with Pt. and spouse. Pt. displayed evidence of being encouraged and verbalized gratitude for the spiritual care visit. Pt. also welcomed this loan broker to return, and to to please contact her commission agent livestock. Contacted Pts. commission agent livestock with a DM."
[2024-07-20 19:56] VITALS: BP 149/71
[2024-07-20] MEDS ORDERED: buprenorphine HCL 2 MG TAB.SUBL SL SCH (21:00)
[2024-07-20] MEDS ORDERED: HyDROXyzine HCl 25 MG Tab PO ONE (23:15)
[2024-07-20] MEDS ORDERED: Melatonin 5 MG Tablet PO ONE (23:15)
--- NOTE | 2024-07-20 23:34 | NUR ---
PATIENT IS NON COOPERATIVE WITH CARE. PATIENT PUSHING AGAINST STAFF WHEN ATTEMPTING TO ROLL CHANGE AND PUT A CLEAN ATTENDS ON PATIENT. PATIENT YELLING AT STAFF TO NOT TOUCH HER AND THAT SHE CAN CARE FOR HERSELF. PATIENT IS YELLING OUT AND IS NOT REDIRECTABLE.
--- NOTE | 2024-07-21 02:52 | NUR ---
PATIENT NOT USING HER CALL LIGHT APPROPRIATELY. PATIENT CALLING EVERY 5 MINUTES ASKING FOR TISSUES, TO HAVE SOMEONE CHANGE HER TV CHANNEL, AND CALLING OUT. PATIENT IS ABLE TO CHANGE HER TV CHANNEL AND GRAB A TISSUE SHE HAS SHOWN THIS ABILITY TO STAFF. ATTEMPTED TO EDUCATE PATIENT ON PATIENT ROUNDING PATIENT STATES "DONT I MATTER, CANT YOU JUST STAY IN HERE WITH ME" EXPLAIN THAT WE HAVE 5 PATIENTS AND THAT SHE NEEDS TO LET US KNOW WHAT SHE NEEDS BEFORE WE LEAVE HER ROOM SO THAT WE CAN ALSO ASSIST OTHER PATIENTS WITH THIER NEEDS. PATIENT DOES NOT APPEAR TO UNDERSTAND AND IS NOT EASILY REDIRECTABLE.
--- NOTE | 2024-07-21 03:55 | NUR ---
SHIFT SUMMARY. PATIENT IS A&[id number], PLACE, AND SELF. PATIENT CALLING STAFF VERY FREQUENTLY. PATIENT C/O INSOMNIA-1X DOSE OF ATARAX AND MELATONIN ORDERED BY HOSPITALIST WAS NOT AFFECT-PATIENT AWAKE T/O NIGHT. PATIENT IS DIFFICULT TO REDIRECT AND FORGETFUL. PATIENTS IV INFILTRATED THIS SHIFT-PATIENT DID NOT BELIEVE THAT IV WAS INFILTRATED, YAHIR WARE ABLE TO PLACE NEW IV. PATIENT ABLE TO ROLL TO LEFT SIDE TO USE THE BEDPAN-PATIENT HAS HAD FREQUENT URINATION-PUREWICK PLACED FOR BEDTIME TO PROVIDE INTERVENTION IN ORDER TO GET SOME SLEEP-PUREWICK IN PLACE BUT PATIENT NOT ABLE TO SLEEP THIS SHIFT. PATIENTS BED IS LOCKED IN THE LOWEST POSITION WITH BED ALARM ON FOR PATIENT SAFETY. CALL LIGHT IS IN REACH. CARE IS ONGOING.
[2024-07-21 05:05] VITALS: BP 155/113
[2024-07-21 06:09] LABS: BASOPHILS ABSOLUTE AUTO 0.03 K/mm3 (0.00-0.23); BASOPHILS PERCENT AUTO 0 % (0-2); EOSINOPHILS ABSOLUTE AUTO 0.11 K/mm3 (0.00-0.68); EOSINOPHILS PERCENT AUTO 2 % (0-6); Hematocrit 32.2 % (33.0-51.0); Hemoglobin 10.6 g/dL (11.5-16.0); IMMATURE GRAN ABSOLUTE AUTO 0.03 K/mm3 (0.00-0.10); IMMATURE GRAN PERCENT AUTO 0 % (0-1); LYMPHOCYTES ABSOLUTE AUTO 1.33 K/mm3 (0.84-5.20); LYMPHOCYTES PERCENT AUTO 20 % (21-46); MONOCYTES ABSOLUTE AUTO 0.73 K/mm3 (0.16-1.47); MONOCYTES PERCENT AUTO 11 % (4-13); Mean Corpuscular HGB 32.3 pg (26.0-34.0); Mean Corpuscular HGB Conc 32.9 g/dL (31.5-36.5); Mean Corpuscular Volume 98 fL (80-100); Mean Platelet Volume 8.9 fL (9.1-12.4); NEUTROPHILS ABSOLUTE AUTO 4.45 K/mm3 (1.96-9.15); NEUTROPHILS PERCENT AUTO 67 % (41-73); Platelet Count 276 K/mm3 (150-400); RDW Coefficient Variation 12.3 % (11.7-14.2); RDW Standard Deviation 44.8 fL (35.1-46.3); Red Blood Cell Count 3.28 M/mm3 (3.80-5.20); White Blood Cell Count 6.68 K/mm3 (4.00-11.30)
[2024-07-21 06:36] LABS: Albumin, Blood 2.9 g/dL (3.4-5.0); Albumin/Globulin Ratio 0.7 (0.8-1.8); Bilirubin, Total 0.4 mg/dL (0.1-1.0); Bun/Creatinine Ratio 33.3 (12.0-20.0); Calcium, Blood 9.3 mg/dL (8.5-10.1); Creatinine, Blood 0.36 mg/dL (0.40-1.00); Potassium, Blood 4.2 mmol/L (3.5-5.5); Total Protein, Blood 6.9 g/dL (6.4-8.2)
[2024-07-21 06:40] VITALS: BP 170/91
[2024-07-21 07:13] VITALS: BP 152/75
[2024-07-21] MEDS ORDERED: Insulin Human Lispro 100 Units/ML 3ML Syringe SC SCH (07:30)
[2024-07-21] MEDS ORDERED: PARoxetine HCl 20 MG Tab PO SCH (09:00)
[2024-07-21] MEDS ORDERED: Atorvastatin 40 MG Tab PO SCH (09:00)
[2024-07-21] MEDS ORDERED: PANT20 PO (15:23)
--- NOTE | 2024-07-21 15:46 | NUR ---
DISCHARGE NOTE PT DISCHARGED HOME AT APPROX 1545. PT AND PT'S PROVIDED W/ VERBAL AND WRITTEN INSTRUCTIONS AND REPORTED UNDERSTANDING. PT A&O 2-3, VSS, 1P TRANSFER ASSIST TO W/C, TOLERATING PO, VOIDING, AND PAIN MANAGED PER EMAR. KAROL WALKER PROVIDED TO PT. BELONGINGS WERE RETURNED. PT ESCOURTED OUT VIA W/C BY TIERRA PORTILLO.
== END 2024-07-21 16:02 | disposition home health service (06) ==
LOC: ER 12:40 → MEDS 12:41 → ERHOLD 12:41 → MEDS 07-20 15:22
PROVIDERS: Family Medicine; Nurse Practitioner Acute Care; Student in an Organized Health Care Education/Training Program; ADMIT Internal Medicine
DX: N17.9 Acute kidney failure, unspecified (principal); I69.954 Hemiplegia and hemiparesis following unspecified cerebrovascular disease affecting left non-dominant side; G93.41 Metabolic encephalopathy; J44.9 Chronic obstructive pulmonary disease, unspecified; I10 Essential (primary) hypertension; E11.9 Type 2 diabetes mellitus without complications; G40.909 Epilepsy, unspecified, not intractable, without status epilepticus; F11.20 Opioid dependence, uncomplicated; G47.33 Obstructive sleep apnea (adult) (pediatric); Z79.84 Long term (current) use of oral hypoglycemic drugs; Z79.899 Other long term (current) drug therapy
CPT/HCPCS: 0202U; 36415; 51798; 70450; 71046; 80053; 81001; 82550; 82803; 82947; 83735; 84100; 84145; 85025; 87086; 93005; 93010; 96361; 96372; 96374; 97161; 97530; 99285-25; A9270; G0378; J1650; J1885; J2470; J7030; J7120; P9612

== ENCOUNTER 2024-08-23 17:33 | Emergency (ER) | payer OTHER ==
[~2024-08-23] VITALS: Ht 157.5 cm; Wt 69.8 kg
[~2024-08-23 17:33] MED LIST changes: +ATOR40TA PO; +Flexeril5 MG PO; +GLUCOPHAGE1000 M1 PO; +PANT20 PO
[2024-08-23 17:53] VITALS: BP 164/85
== END 2024-08-23 18:58 | disposition left against medical advice (07) ==
LOC: ER 17:33
DX: R10.10 Upper abdominal pain, unspecified (principal); R10.30 Lower abdominal pain, unspecified; Z53.21 Procedure and treatment not carried out due to patient leaving prior to being seen by health care provider
CPT/HCPCS: 99281

== ENCOUNTER 2024-08-24 18:16 | Inpatient (IN) | payer MEDICARE ==
[~2024-08-24] VITALS: Ht 157.5 cm; Wt 66.7 kg
[2024-08-24 19:27] LABS: BASOPHILS ABSOLUTE AUTO 0.02 K/mm3 (0.00-0.23); BASOPHILS PERCENT AUTO 0 % (0-2); EOSINOPHILS PERCENT AUTO 0 % (0-6); Hematocrit 42.7 % (33.0-51.0); Hemoglobin 14.3 g/dL (11.5-16.0); IMMATURE GRAN ABSOLUTE AUTO 0.05 K/mm3 (0.00-0.10); IMMATURE GRAN PERCENT AUTO 0 % (0-1); LYMPHOCYTES ABSOLUTE AUTO 1.17 K/mm3 (0.84-5.20); LYMPHOCYTES PERCENT AUTO 10 % (21-46); MONOCYTES PERCENT AUTO 10 % (4-13); Mean Corpuscular HGB 31.8 pg (26.0-34.0); Mean Corpuscular HGB Conc 33.5 g/dL (31.5-36.5); Mean Corpuscular Volume 95 fL (80-100); Mean Platelet Volume 9.1 fL (9.1-12.4); NEUTROPHILS ABSOLUTE AUTO 9.68 K/mm3 (1.96-9.15); NEUTROPHILS PERCENT AUTO 80 % (41-73); Platelet Count 403 K/mm3 (150-400); RDW Coefficient Variation 12.7 % (11.7-14.2); RDW Standard Deviation 44.9 fL (35.1-46.3); White Blood Cell Count 12.12 K/mm3 (4.00-11.30)
[2024-08-24 20:03] LABS: Albumin, Blood 4.1 g/dL (3.4-5.0); Albumin/Globulin Ratio 0.9 (0.8-1.8); Bilirubin, Total 0.3 mg/dL (0.1-1.0); Bun/Creatinine Ratio 33.2 (12.0-20.0); Calcium, Blood 10.2 mg/dL (8.5-10.1); Creatinine, Blood 0.54 mg/dL (0.40-1.00); Globulin, Blood 4.7 g/dL (2.2-4.0); Potassium, Blood 3.5 mmol/L (3.5-5.5); Total Protein, Blood 8.8 g/dL (6.4-8.2)
[2024-08-24] MEDS ORDERED: Ampicillin Sod/Sulbactam Sod 3 GM in NS 100 ML IV ONE (22:15)
[2024-08-24 22:43] LABS: Source, Urine Clean Catch
[2024-08-24 22:51] LABS: Appearance, Urine Hazy (Clear); Bilirubin, Urine Neg (Neg); Blood, Urine Neg (Neg); Color, Urine Yellow (P-Yellow); Glucose Qualitative, Urine 3+ (Neg); Ketones, Urine Neg (Neg); Leukocyte Esterase, Urine Neg (Neg); Nitrite, Urine Neg (Neg); Protein, Urine 3+ (Neg); Specific Gravity, Urine 1.025 (1.003-1.022); Urobilinogen, Urine NORM (Normal)
[2024-08-24] MEDS ORDERED: FentaNYL Citrate 50 MCG/ML 2 ML Injection IV PRN ×2 (22:55→23:15)
[2024-08-24] MEDS ORDERED: Ondansetron HCl 2 MG / ML 2ML Vial IV ONE (22:55)
[2024-08-24] MEDS ORDERED: NS 1,000 ML IV SCH (22:55)
[2024-08-24 22:56] LABS: Base Excess Venous 18.3 mmol/L; Bicarbonate Venous 40.2 mmol/L (24.0-30.0); PCO2 Venous 47.6 mmHg (38-42)
[2024-08-24 23:04] LABS: Beta-hydroxybutyrate 2.6 mg/dL (0.2-2.8); Phosphorus, Blood 4.4 mg/dL (2.5-4.9)
[2024-08-24 23:07] LABS: pH Blood Venous 7.54 (7.34-7.37)
[2024-08-24 23:08] LABS: U Amphetamine Screen Not Detected; U Barbituate Screen Not Detected; U Benzodiazapine Screen Not Detected; U Buprenorphine Screen DETECTED; U Cannabinoids Screen Not Detected; U Cocaine Screen Not Detected; U Methadone Screen Not Detected; U Methamphetamine Screen Not Detected; U Opiates Screen Not Detected; U Oxycodone Screen Not Detected; U Phencyclidine Screen Not Detected
[2024-08-24 23:10] LABS: Amorphous Light (0-Heavy); Bacteria Many /hpf; Hyaline Casts 0-2 /lpf (0-2); Red Blood Cells, Urine 0-2 /hpf (0-2); Squamous Epithelial Cells Many /hpf (Few)
[2024-08-24] MEDS ORDERED: NS 1,000 ML IV ONE (23:15)
[2024-08-24] MEDS ORDERED: FLU VACC TS2024-25(6MOS UP)/PF 45 MCG/0.5 ML SYRINGE IM ONE (23:15)
[2024-08-24] MEDS ORDERED: Ondansetron HCl 2 MG / ML 2ML Vial IV PRN (23:15)
[2024-08-25] VITALS (8 sets, daily range): BP systolic 123–182; BP diastolic 93–123
[2024-08-25] MEDS ORDERED: Midazolam HCl 1MG / ML 2ML Vial IV ONE (00:40)
[2024-08-25] MEDS ORDERED: GLIP5ER PO (02:59)
[2024-08-25 05:32] LABS: BASOPHILS ABSOLUTE AUTO 0.02 K/mm3 (0.00-0.23); BASOPHILS PERCENT AUTO 0 % (0-2); EOSINOPHILS PERCENT AUTO 0 % (0-6); Hematocrit 40.1 % (33.0-51.0); Hemoglobin 13.3 g/dL (11.5-16.0); IMMATURE GRAN ABSOLUTE AUTO 0.04 K/mm3 (0.00-0.10); IMMATURE GRAN PERCENT AUTO 0 % (0-1); LYMPHOCYTES ABSOLUTE AUTO 0.91 K/mm3 (0.84-5.20); LYMPHOCYTES PERCENT AUTO 9 % (21-46); MONOCYTES PERCENT AUTO 11 % (4-13); Mean Corpuscular HGB 31.7 pg (26.0-34.0); Mean Corpuscular HGB Conc 33.2 g/dL (31.5-36.5); Mean Corpuscular Volume 96 fL (80-100); Mean Platelet Volume 9.3 fL (9.1-12.4); NEUTROPHILS ABSOLUTE AUTO 8.07 K/mm3 (1.96-9.15); NEUTROPHILS PERCENT AUTO 80 % (41-73); Platelet Count 380 K/mm3 (150-400); RDW Coefficient Variation 12.9 % (11.7-14.2); RDW Standard Deviation 45.5 fL (35.1-46.3); Red Blood Cell Count 4.19 M/mm3 (3.80-5.20); White Blood Cell Count 10.14 K/mm3 (4.00-11.30)
[2024-08-25 05:56] LABS: Albumin, Blood 3.6 g/dL (3.4-5.0); Albumin/Globulin Ratio 0.9 (0.8-1.8); Bilirubin, Total 0.4 mg/dL (0.1-1.0); Bun/Creatinine Ratio 34.5 (12.0-20.0); Calcium, Blood 9.5 mg/dL (8.5-10.1); Creatinine, Blood 0.49 mg/dL (0.40-1.00); Globulin, Blood 4.2 g/dL (2.2-4.0); Potassium, Blood 3.5 mmol/L (3.5-5.5); Total Protein, Blood 7.8 g/dL (6.4-8.2)
--- NOTE | 2024-08-25 06:27 | NUR ---
SHIFT SUMMARY PT ALERT AND ORIENTED TIMES 2- 3. TRANSFER FROM ER W/ SMALL BOWEL OBSTRUCTION. PT HAS OWN WHEELCHAIR. 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 IVC FILTER. NG TUBE IN LEFT NARE, ON TELE. PT IS CONFUSED AT TIMES AND FORGETFUL, OFTEN REPEATING SAME QUESTIONS. BED IN LOW POSITION, CALL LIGHT WITHIN REACH, RAILS TIMES 2.
[2024-08-25] MEDS ORDERED: Insulin Human Lispro 100 Units/ML 3ML Syringe SC SCH (07:30)
[2024-08-25] MEDS ORDERED: Buprenorphine HCL/Naloxone HCL 8MG-2MG Tab SL SCH (09:00)
[2024-08-25] MEDS ORDERED: PARoxetine HCl 20 MG Tab PO SCH (09:00)
[2024-08-25] MEDS ORDERED: Lactated Ringer's 1,000 ML IV SCH (11:40)
[2024-08-25] MEDS ORDERED: HydrALAZINE HCl 20 MG / ML 1ML Vial IV PRN (11:40)
[2024-08-25] MEDS ORDERED: DOCU100 PO (16:54)
[2024-08-25] MEDS ORDERED: ASCO500 PO (16:55)
[2024-08-25] MEDS ORDERED: MIRALAX1714 PO (16:55)
[2024-08-25] MEDS ORDERED: Hair, Skin & N1 EACH PO (16:56)
[2024-08-25] MEDS ORDERED: Lisinopril 10 MG Tab PO SCH (18:00)
[2024-08-25] MEDS ORDERED: Prochlorperazine Edisylate 10 mg Vial IV PRN (20:10)
[2024-08-25] MEDS ORDERED: Metoprolol Tartrate 1 MG/ML 5 ML VIAL IV ONE ×2 (20:10→20:20)
--- NOTE | 2024-08-25 20:26 | NUR ---
SHIFT SUMMARY PT HAD LOW INT SUCTION THIS MORNING WITH 500 ML OUTPUT. PRIOR TO DC'D SUCTION FOR SMALL BOWEL FOLLOW THROUGH. NG TUBE STILL CLAMPED, X-RAY ORDERED FOR AM. ELECTRONIC PAGINATION SYSTEM OPERATOR CALLED TO SAY PT CONVERTED TO AFIB IN THE 140'S TO 150'S, DR. BRUCE NOTIFIED BUT ODERED TO HAVE ENGINE COWLING INSTALLER HOSPITALIST MAKE DECISION. REPORT GIVEN TO ONCOMING NURSE ROEL WHO IS TO CALL ENGINE COWLING INSTALLER PROVIDER FOR ORDERS. PATIENT HOB ELEVATED. PATIENT THIS AFTERNOON WAS SATTING 85% ON ROOM AIR AND APPEARED DROWSY HOURS AFTER IV FENT NOSE IN AM. PLACED ON 2L NC AND THAT BROUGHT HER UP ABOVE 90%, NO OTHER REPITRATORY S/SNOTED. ROOM AIR BASELINE. IV ZOFRNA GIVEN THIS EVENING FOR NAUSEA, MINIMAL EMESIS.
[2024-08-25] MEDS ORDERED: Amitriptyline HCl 50 MG Tab PO SCH (21:00)
[2024-08-25] MEDS ORDERED: Pantoprazole Sodium 40 MG Injection IV SCH (21:00)
[2024-08-25] MEDS ORDERED: levETIRAcetam 1,000 MG in NS 100 ML IV ONE (22:45)
[2024-08-25 23:00] LABS: Bun/Creatinine Ratio 38.8 (12.0-20.0); Calcium, Blood 9.8 mg/dL (8.5-10.1); Creatinine, Blood 0.52 mg/dL (0.40-1.00); Magnesium, Blood 3.1 mg/dL (1.6-2.4); Potassium, Blood 3.7 mmol/L (3.5-5.5)
[2024-08-25] MEDS ORDERED: NS 250 ML IV PRN (23:30)
[2024-08-26 03:47] VITALS: BP 156/96
--- NOTE | 2024-08-26 05:22 | NUR ---
pt is a&Ox3-4, forgetful, received pt with new onset AFIB w/rate of 156, 2 doses of 5mg labetalol given with no significant effect on rate. Ordered IV fluids were also started @ 194. Pt spontanously converted back to SR @ 2244 before being transfered to PCU. pt remains hypertensive, 156/96 @ 0347. NG remains clamped, no BM's this shift, bedresting w/HOB @ 30, will cont to monitor until report given to oncoming nurse.
[2024-08-26] MEDS ORDERED: Insulin Human Lispro 100 Units/ML 3ML Syringe SC SCH (06:00)
[2024-08-26 07:34] VITALS: BP 147/92
[2024-08-26] MEDS ORDERED: FentaNYL Citrate 50 MCG/ML 2 ML Injection IV PRN (12:00)
[2024-08-26] MEDS ORDERED: D5W-1/2NS KCl 20mEq 1,000 ML IV SCH (12:00)
[2024-08-26] MEDS ORDERED: Ampicillin Sod/Sulbactam Sod 3 GM in NS 100 ML IV SCH (12:30)
[2024-08-26] MEDS ORDERED: Metoprolol Tartrate 1 MG/ML 5 ML VIAL IV SCH (16:00)
--- NOTE | 2024-08-26 16:52 | NUR ---
NG PLACED DOWN L NOSTRIL WITH LARGE AMOUNTS OF GASTRIC CONTENTS IMMEDIATELY DRAINING FROM TUBE PRIOR TO BEING PLACED ON LIS.
[2024-08-26] MEDS ORDERED: LORazepam 2 MG/ML 1ML Injection IV PRN (17:15)
--- NOTE | 2024-08-26 17:19 | NUR ---
THIS RN NOTIFIED THAT NG TUBE HAD TO BE PLACED. ORDERS RECEIVED AND EMAR UPDATED.
[2024-08-26 17:28] VITALS: BP 128/76
--- NOTE | 2024-08-26 18:36 | NUR ---
SHIFT SUMMARY PT A&OX3-4 AND FORGETFUL, VSS, BEDRIDDEN AT THIS TIME, VOIDING, AND DENIED PAIN. NG CLAMPED AND REMOVED. PT ATTEMPTED PO INTAKE AND DID NOT TOLERATE IT WELL. PT HAD INTRACTABLE VOMITING W/ ASPIRATION AND NEW NG WAS PLACED W/ 1000 MLS OUTPUT. PROVIDER AWARE, SEE PREVIOUS NOTE. PT NPO AND D5 INFUSING PER ORDER. IV METOPROLOL GIVEN FOR HR. PT HAD POSITIVE BLOOD CULTURE RESULT, NEW ORDER FOR ABX IN EMAR. NO OTHER ACUTE CHANGES. CALL LIGHT WITHIN REACH AND PT ABLE TO MAKE NEEDS KNOWN.
[2024-08-26 19:42] VITALS: BP 151/88
[2024-08-27 00:37] VITALS: BP 189/102
[2024-08-27 01:15] VITALS: BP 163/92
[2024-08-27 06:21] LABS: BASOPHILS ABSOLUTE AUTO 0.02 K/mm3 (0.00-0.23); BASOPHILS PERCENT AUTO 0 % (0-2); EOSINOPHILS PERCENT AUTO 0 % (0-6); Hematocrit 36.8 % (33.0-51.0); Hemoglobin 11.6 g/dL (11.5-16.0); IMMATURE GRAN ABSOLUTE AUTO 0.04 K/mm3 (0.00-0.10); IMMATURE GRAN PERCENT AUTO 0 % (0-1); LYMPHOCYTES ABSOLUTE AUTO 1.59 K/mm3 (0.84-5.20); LYMPHOCYTES PERCENT AUTO 15 % (21-46); MONOCYTES PERCENT AUTO 12 % (4-13); Mean Corpuscular HGB 31.9 pg (26.0-34.0); Mean Corpuscular HGB Conc 31.5 g/dL (31.5-36.5); Mean Platelet Volume 9.5 fL (9.1-12.4); NEUTROPHILS ABSOLUTE AUTO 7.56 K/mm3 (1.96-9.15); NEUTROPHILS PERCENT AUTO 73 % (41-73); Platelet Count 312 K/mm3 (150-400); RDW Standard Deviation 48.6 fL (35.1-46.3); Red Blood Cell Count 3.64 M/mm3 (3.80-5.20); White Blood Cell Count 10.41 K/mm3 (4.00-11.30)
[2024-08-27 06:23] LABS: Mean Corpuscular Volume 101 fL (80-100)
[2024-08-27 07:05] LABS: Albumin, Blood 3.1 g/dL (3.4-5.0); Albumin/Globulin Ratio 0.8 (0.8-1.8); Bilirubin, Total 0.5 mg/dL (0.1-1.0); Bun/Creatinine Ratio 49.1 (12.0-20.0); Calcium, Blood 8.7 mg/dL (8.5-10.1); Creatinine, Blood 0.41 mg/dL (0.40-1.00); Total Protein, Blood 7.1 g/dL (6.4-8.2)
[2024-08-27 07:28] VITALS: BP 157/95
[2024-08-27] MEDS ORDERED: Insulin Human Lispro 100 Units/ML 3ML Syringe SC SCH (12:00)
[2024-08-27] MEDS ORDERED: Potassium Chloride 20 MEQ in NS 90 ML IV ONE (13:05)
[2024-08-27] MEDS ORDERED: Metoprolol Tartrate 1 MG/ML 5 ML VIAL IV PRN (15:25)
[2024-08-27 15:51] VITALS: BP 169/80
--- NOTE | 2024-08-27 17:59 | NUR ---
SHIFT SUMMARY D5 CONT TO INFUSE PER ORDER. PT NOT ABLE TO TOLERATE PO INTAKE OF ICE CHIPS. NG TUBE CONT TO BE CONNECTED TO LOW INTERMIT SUCTION W/ MINIMAL OUTPUT. NO OTHER ACUTE CHANGES. CALL LIGHT WITHIN REACH AND PT ABLE TO MAKE NEEDS KNOWN.
[2024-08-27 19:51] VITALS: BP 158/98
[2024-08-27] MEDS ORDERED: levETIRAcetam 500 MG in NS 100 ML IV SCH (21:00)
[2024-08-28 02:22] VITALS: BP 155/90
--- NOTE | 2024-08-28 05:35 | NUR ---
SHIFT SUMMARY NOC PT A/O X 3. FORGETFUL AND USES CALL LIGHT INAPPROPRIATELY AT TIMES. VSS. PT NPO DUE TO SBO AND HAS NG TUBE IN PLACE ON LOW INTERMITTENT SUCTIONING PRODUCING GREENISH DRAINAGE. PT HAS BEEN ABLE TO TOLERATE ICE CHIPS DURING SHIFT. PT STOOLS CONTINUE TO BE DARK GREEN AND LIQUID/LOOSE. PT AGREED TO HAVE PUREWICK PUT BACK INTO PLACE. PT Q6H CBG 0000 160 AND GIVEN LISPRO 2 UNITS PER SLIDING SCALE. D5W 1/2 NS KCL @ 75 ML/HR INFUSING. ON TELE SINUS TACH/PAC'S IN 100'S. PT HAS POWERGLIDE CAMILLE. PT CURRENTLY RESTING WITH BED IN LOWEST POSITION, AND CALL LIGHT WITHIN REACH.
[2024-08-28] MEDS ORDERED: Metoprolol Tartrate 1 MG/ML 5 ML VIAL IV SCH (08:00)
[2024-08-28 08:08] LABS: Albumin, Blood 3.1 g/dL (3.4-5.0); Anion Gap 9 mmol/L (3-11); Blood Urea Nitrogen 11 mg/dL (8-24); Bun/Creatinine Ratio 27.6 (12.0-20.0); CO2, Blood 33 mmol/L (21-32); Calcium, Blood 8.8 mg/dL (8.5-10.1); Chloride, Blood 103 mmol/L (98-108); Glomerular Filtration Rate 106 (60-); Glucose, Blood 227 mg/dL (70-99); Phosphorus, Blood 2.8 mg/dL (2.5-4.9); Potassium, Blood 3.5 mmol/L (3.5-5.5); Sodium, Blood 141 mmol/L (136-145)
[2024-08-28 08:13] VITALS: BP 182/97
[2024-08-28 10:54] VITALS: BP 172/90
[2024-08-28 12:38] VITALS: BP 140/72
[2024-08-28 17:53] VITALS: BP 139/68
--- NOTE | 2024-08-28 19:30 | NUR ---
SHIFT SUMMARY: PT ORIENTED X2-3. OCCASIONALLY FORGETFUL. PT HAD NG TUBE PLACED ON INTERMITTENT LOW SUCTION. NG TUBE IS NOW CLAMPED PER DR. POWELL REQUEST. ICE CHIPS ONLY AT THIS TIME. PAIN MEDICATION PROVIDED TWICE THIS SHIFT FOR RIGHT ABDOMINAL PAIN. 1/2 NS KCL INFUSING @ 75/HR IN CAMILLE PG. CALL LIGHT IN REACH. BED IN LOWEST POSITION.
[2024-08-28 19:35] VITALS: BP 144/88
[2024-08-29 00:14] VITALS: BP 130/88
--- NOTE | 2024-08-29 03:38 | NUR ---
SHIFT SUMMARY 73 YR F ADMITTED ON 08/24/24. FULL CODE. NO ACUTE CHANGES THIS SHIFT. WITH NG TUBE CLAMPED, PT IS TOLERATING ICE CHIPS WELL. MINIMAL C/O PAIN BUT PT HAS BEEN AWAKE ALL NIGHT AND IS A BIT ANXIOUS. SHE USES HER CALL LIGHT CONSTANTLY AND REPEATEDLY ASKS THE SAME QUESTIONS OVER AND OVER. PT WAS EDUCATED ON PROPER USE OF THE CALL LIGHT AND ADVISED THAT WE DO HOURLY ROUNDING. WILL CONTINUE TO MONITOR. BED IN LOW POSITION AND CALL LIGHT IN REACH.
[2024-08-29 07:08] LABS: Albumin, Blood 2.9 g/dL (3.4-5.0); Anion Gap 12 mmol/L (3-11); Blood Urea Nitrogen 12 mg/dL (8-24); Bun/Creatinine Ratio 27.5 (12.0-20.0); CO2, Blood 28 mmol/L (21-32); Calcium, Blood 8.8 mg/dL (8.5-10.1); Chloride, Blood 106 mmol/L (98-108); Creatinine, Blood 0.44 mg/dL (0.40-1.00); Glomerular Filtration Rate 103 (60-); Glucose, Blood 160 mg/dL (70-99); Phosphorus, Blood 3.2 mg/dL (2.5-4.9); Potassium, Blood 3.5 mmol/L (3.5-5.5); Sodium, Blood 142 mmol/L (136-145)
[2024-08-29 08:33] VITALS: BP 144/84
[2024-08-29 16:09] VITALS: BP 158/116
[2024-08-29] MEDS ORDERED: Enoxaparin 40 MG/0.4 ML SYR SC SCH (17:00)
[2024-08-29 17:04] VITALS: BP 137/85
--- NOTE | 2024-08-29 18:09 | NUR ---
SHIFT SUMMARY A/O TO SELF AND SPOUSE, VERY FORGETFUL AND CONFUSED AT TIMES. REPETITVE QUESTIONS, CANNOT RECALL RN/LUMBER ESTIMATOR NAMES. COOPERATIVE AND CALM WITH CARE. ADVANCED FROM NPO TO CLEAR LIQUID DIET PER PROVIDER ORDERS, PT TOLERATING WELL. DENIES NAUSEA, NO EMESIS. PT DOES CONTINUE TO REPORT ABDOMINAL DISCOMFORT AND TREATED PER EMAR. PT CALLS APPROPRIATELY TO USE BED TORRES, STOOL CONTINUES TO BE LIQUID WITH COFFEE GROUND AND DARK IN COLOR. PT CURRENTLY RESTING IN HOSPITAL BED WITH BED IN LOWEST POSITION, EATING DINNER, CALL LIGHT WITHIN REACH.
[2024-08-29 19:55] VITALS: BP 168/94
[2024-08-30 00:20] VITALS: BP 145/89
[2024-08-30] MEDS ORDERED: Melatonin 5 MG Tablet PO ONE (02:45)
--- NOTE | 2024-08-30 02:49 | NUR ---
NEW T-ORDER FROM ON-CALL HOSPITALIST RECEIVED @2564: MELATONIN PO 5MG NOW, AND MELATONIN PO 5MG QHS. ENTERED TO [facility], SEE EMAR. NO ADDITIONAL NEW ORDERS AT THIS TIME.
--- NOTE | 2024-08-30 03:10 | NUR ---
SHIFT SUMMARY PT IS A/O X2-3, SLURRED SPEECH. NG TUBE IN PLACE, CLAMPED. CLEAR LIQUID DIET. DW 1/2KCL 20MEQ INFUSING @75MLS/HR ORDERED. SUBOXONE ADMIN ORDERED AT HS. HS BG 211. PT IS ON RA. HOB>30 DEGREES. TELE NSR @82. PT DENIES PAIN AND DISCOMFORT DURING THIS SHIFT. IV HYDRAZALINE ADMINISTERED IV AT HS, 168/94. ONE TIME AND QHS ORDER FOR MELATONING RECEIVED FROM THE ON-CALL HOSPITALIST. PT USES CALL LIGHT MULTIPLE TIMES, THEN DOES NOT HAVE ANY REQUESTS. BED AT THE LOWEST POSITION, CALL LIGHT W/I REACH.
[2024-08-30 07:34] VITALS: BP 159/91
[2024-08-30 08:55] LABS: BASOPHILS ABSOLUTE AUTO 0.02 K/mm3 (0.00-0.23); BASOPHILS PERCENT AUTO 0 % (0-2); EOSINOPHILS ABSOLUTE AUTO 0.15 K/mm3 (0.00-0.68); EOSINOPHILS PERCENT AUTO 2 % (0-6); Hematocrit 35.7 % (33.0-51.0); Hemoglobin 11.7 g/dL (11.5-16.0); IMMATURE GRAN ABSOLUTE AUTO 0.07 K/mm3 (0.00-0.10); IMMATURE GRAN PERCENT AUTO 1 % (0-1); LYMPHOCYTES ABSOLUTE AUTO 1.03 K/mm3 (0.84-5.20); LYMPHOCYTES PERCENT AUTO 12 % (21-46); MONOCYTES ABSOLUTE AUTO 0.72 K/mm3 (0.16-1.47); MONOCYTES PERCENT AUTO 8 % (4-13); Mean Corpuscular HGB 31.9 pg (26.0-34.0); Mean Corpuscular HGB Conc 32.8 g/dL (31.5-36.5); Mean Corpuscular Volume 97 fL (80-100); Mean Platelet Volume 9.8 fL (9.1-12.4); NEUTROPHILS ABSOLUTE AUTO 6.78 K/mm3 (1.96-9.15); NEUTROPHILS PERCENT AUTO 77 % (41-73); Platelet Count 277 K/mm3 (150-400); RDW Coefficient Variation 12.5 % (11.7-14.2); RDW Standard Deviation 45.2 fL (35.1-46.3); Red Blood Cell Count 3.67 M/mm3 (3.80-5.20); White Blood Cell Count 8.77 K/mm3 (4.00-11.30)
[2024-08-30 09:16] LABS: Albumin, Blood 2.9 g/dL (3.4-5.0); Anion Gap 9 mmol/L (3-11); Blood Urea Nitrogen 7 mg/dL (8-24); Bun/Creatinine Ratio 18.2 (12.0-20.0); CO2, Blood 28 mmol/L (21-32); Calcium, Blood 8.7 mg/dL (8.5-10.1); Chloride, Blood 105 mmol/L (98-108); Creatinine, Blood 0.39 mg/dL (0.40-1.00); Glomerular Filtration Rate 106 (60-); Glucose, Blood 205 mg/dL (70-99); Phosphorus, Blood 2.9 mg/dL (2.5-4.9); Potassium, Blood 3.7 mmol/L (3.5-5.5); Sodium, Blood 138 mmol/L (136-145)
[2024-08-30] MEDS ORDERED: Buprenorphine HCL/Naloxone HCL 8MG-2MG Tab SL SCH (14:00)
[2024-08-30 15:20] VITALS: BP 179/84
--- NOTE | 2024-08-30 16:13 | NUR ---
PT HAS BEEN A0X3 AND HAS CONFUSION. PT HAS BEEN COOPERTATIVE SHE WAS ABLE TO COMPLETE MOST OF HER MRI. PT DOES STATE SHE DOES NOT FEEL RIGHT. PT GOT NAUSEA AND HAS COUGHED A BIT SINCE SHE TOOK HER LACTALOSE. PT IS A STANDBY ASSIST TO RESTROOM AND CAN BE IMPULIVE IF SHE DOES NOT HAVE HER SISTER WITH HER. CALL LIGHT IS IN REACH WILL CONTINUE TO MONITOR.
--- NOTE | 2024-08-30 16:16 | NUR ---
PT HAS BEEN AOX3 WITH CONFUSION. PT HAS PERKED UP MORE AND IS VISITING WITH FAMILY. PT RESTING IN BED CAN MAKE MOST NEEDS KNOWN. TREATED FOR ABD PAIN PER EMAR. CALL LIGHT WITHIN REACH WILL CONTINUE TO MONITOR.
[2024-08-30] MEDS ORDERED: MetFORMIN HCl 500 mg PO SCH (17:00)
[2024-08-30] MEDS ORDERED: Acetaminophen 325 MG TABLET PO PRN (18:40)
[2024-08-30] MEDS ORDERED: TROLAMINE SALICYLATE 10% CREAM 141 GM TUBE TOP PRN (18:50)
[2024-08-30 19:43] VITALS: BP 147/70
[2024-08-30] MEDS ORDERED: Melatonin 5 MG Tablet PO SCH (21:00)
[2024-08-30] MEDS ORDERED: Gabapentin 300 MG Cap PO SCH (21:00)
[2024-08-30] MEDS ORDERED: Metoprolol Tartrate 25 MG Tab PO SCH (21:00)
[2024-08-31 03:41] VITALS: BP 163/83
--- NOTE | 2024-08-31 04:02 | NUR ---
SHIFT SUMMARY NO ACUTE EVENTS DURING THIS SHIFT. MEDICATED WITH PRN TYLENOL AND ZOFRAN FOR C/O RIGHT HIP PAIN 04/12, ABDOMINAL DISCOMFORT, NAUSEA. BY THE BEDSIDE AT HS. PUREWICK IN PLACE DURING NIGHT HRS. DRAINING TEA COLOR URINE>1L DURING THIS SHIFT. HS BG 193. A/O X2-3, CONFUSED. BED AT THE LOWEST POSITION, BED ALARM FOR SAFETY. CALL LIGHT WITHIN REACH.
[2024-08-31 08:14] VITALS: BP 139/91
[2024-08-31 08:51] LABS: BASOPHILS ABSOLUTE AUTO 0.02 K/mm3 (0.00-0.23); BASOPHILS PERCENT AUTO 0 % (0-2); EOSINOPHILS ABSOLUTE AUTO 0.24 K/mm3 (0.00-0.68); EOSINOPHILS PERCENT AUTO 3 % (0-6); Hematocrit 34.4 % (33.0-51.0); Hemoglobin 11.2 g/dL (11.5-16.0); IMMATURE GRAN ABSOLUTE AUTO 0.06 K/mm3 (0.00-0.10); IMMATURE GRAN PERCENT AUTO 1 % (0-1); LYMPHOCYTES ABSOLUTE AUTO 1.41 K/mm3 (0.84-5.20); LYMPHOCYTES PERCENT AUTO 18 % (21-46); MONOCYTES ABSOLUTE AUTO 0.93 K/mm3 (0.16-1.47); MONOCYTES PERCENT AUTO 12 % (4-13); Mean Corpuscular HGB 31.9 pg (26.0-34.0); Mean Corpuscular HGB Conc 32.6 g/dL (31.5-36.5); Mean Corpuscular Volume 98 fL (80-100); Mean Platelet Volume 9.6 fL (9.1-12.4); NEUTROPHILS ABSOLUTE AUTO 5.22 K/mm3 (1.96-9.15); NEUTROPHILS PERCENT AUTO 66 % (41-73); Platelet Count 275 K/mm3 (150-400); RDW Coefficient Variation 12.7 % (11.7-14.2); RDW Standard Deviation 45.7 fL (35.1-46.3); Red Blood Cell Count 3.51 M/mm3 (3.80-5.20); White Blood Cell Count 7.88 K/mm3 (4.00-11.30)
[2024-08-31 09:06] LABS: Albumin, Blood 2.7 g/dL (3.4-5.0); Anion Gap 11 mmol/L (3-11); Blood Urea Nitrogen 4 mg/dL (8-24); Bun/Creatinine Ratio 9.6 (12.0-20.0); CO2, Blood 28 mmol/L (21-32); Calcium, Blood 8.6 mg/dL (8.5-10.1); Chloride, Blood 104 mmol/L (98-108); Creatinine, Blood 0.42 mg/dL (0.40-1.00); Glomerular Filtration Rate 105 (60-); Glucose, Blood 190 mg/dL (70-99); Phosphorus, Blood 3.2 mg/dL (2.5-4.9); Potassium, Blood 3.8 mmol/L (3.5-5.5); Sodium, Blood 139 mmol/L (136-145)
[2024-08-31 15:51] VITALS: BP 148/81
--- NOTE | 2024-08-31 17:02 | NUR ---
PT IS DOING WELL WITHOUT NG TUBE. PT IS HAD DIET ADVANCE WILL MONITOR CLOSELY HOW PT TOLERATES. PT DID REPORT A BELLY ACHE AFTER EATING A PUDDING. PT HAS BEEN VERY HARD TO MOTIVATE OUT OF BED AND DID NOT WORK WITH PHYSICAL THERAPY. PT HAS BEEN INCONTENT OF URINE AND HAD A LARGE INCONTENT BM. CALL LIGHT IS IN REACH WILL CONTINUE TO MONITOR.
--- NOTE | 2024-08-31 17:57 | NUR ---
PT WAS A HEAVY TWO PERSON TO CHAIR NEXT TO BED WAS ABLE TO STAND UP TALL FOR A BIT. PT VERY HAPPY TO HAVE GOTTEN UP. CALL LIGHT WITHIN REACH AND CHAIR ALARM PLACED.
[2024-08-31 20:06] VITALS: BP 143/70
--- NOTE | 2024-09-01 03:18 | NUR ---
SHIFT SUMMARY NO ACUTE EVENTS DURING THIS SHIFT. PT IS 2-PERSON ASSIST WITH GAITBELT TO TRANSFER FROM CHAIR TO BED. A/O X2-3, PT KEEPS ASKING SAME SET OF QUESTIONS FROM THE STAFF MEMBERS. UNABLE TO REORIENT AT THIS TIME. GOOD EFFECTIVNESS WITH QHS MELATONIN 5MG. PUREWICK IN PLACE DRAINING TEA COLOR URINE, OUTPUT >1L DURING THIS SHIFT. PT IS ABLE TO MAKE HER NEEDS KNOWN AND USES THE CALL LIGHT OFTEN. SNACK/PUDDING AT HS. TELE:NSR @75. WAS LOWER AT HS IN 'S.Q6 B AT MIDNIGHT.BED AT THE LOWEST POSITION, CALL LIGHT W/I REACH. BED ALARM FOR SAFETY.
[2024-09-01 04:57] VITALS: BP 189/93
[2024-09-01 05:03] VITALS: BP 190/100
[2024-09-01 07:39] VITALS: BP 150/77
[2024-09-01 07:44] LABS: BASOPHILS ABSOLUTE AUTO 0.03 K/mm3 (0.00-0.23); BASOPHILS PERCENT AUTO 1 % (0-2); EOSINOPHILS ABSOLUTE AUTO 0.18 K/mm3 (0.00-0.68); EOSINOPHILS PERCENT AUTO 3 % (0-6); Hematocrit 33.5 % (33.0-51.0); IMMATURE GRAN ABSOLUTE AUTO 0.06 K/mm3 (0.00-0.10); IMMATURE GRAN PERCENT AUTO 1 % (0-1); LYMPHOCYTES ABSOLUTE AUTO 0.96 K/mm3 (0.84-5.20); LYMPHOCYTES PERCENT AUTO 15 % (21-46); MONOCYTES PERCENT AUTO 11 % (4-13); Mean Corpuscular HGB 32.3 pg (26.0-34.0); Mean Corpuscular HGB Conc 32.8 g/dL (31.5-36.5); Mean Corpuscular Volume 98 fL (80-100); Mean Platelet Volume 9.6 fL (9.1-12.4); NEUTROPHILS ABSOLUTE AUTO 4.64 K/mm3 (1.96-9.15); NEUTROPHILS PERCENT AUTO 71 % (41-73); Platelet Count 249 K/mm3 (150-400); RDW Coefficient Variation 12.5 % (11.7-14.2); RDW Standard Deviation 45.2 fL (35.1-46.3); Red Blood Cell Count 3.41 M/mm3 (3.80-5.20); White Blood Cell Count 6.57 K/mm3 (4.00-11.30)
[2024-09-01] MEDS ORDERED: METO25 PO (12:50)
[2024-09-01] MEDS ORDERED: ONDA4ODT MM (12:51)
[2024-09-01] MEDS ORDERED: ACET325 PO (12:52)
--- NOTE | 2024-09-01 13:48 | NUR ---
DISCHARGE NOTE MS LARSON WAS DISCHARGED HOME WITH HER FAMILY AT 1333HRS. HER FAMILY WAS CONCERNED THAT SHE WOULD BE TOO WEAK TO TRANSFER AND STAND. [place] PHYSICAL THERAPIST SAID THAT SHE IS COMFORTABLE WITH HER STRENGTH TO GO HOME. FAMILY SPOKE WITH ART OBJECTS SUPERVISOR AND UNDERSTOOD THAT THEY COULD APPEAL THE DISCHARGE. PT WAS ABLE TO STAND AND TRANSFER INDEPENDENTLY WITH STAND-BY ASSISTANCE AND ASSISTANCE PULLING UP HER TROUSERS. FAMILY WITNESSED THIS AND SAID THEY WERE COMFORTABLE TAKING HER HOME. POWERGLIDE REMOVED INTACT. TELEMETRY REMOVED. VERBALISED UNDERSTANDING OF WRITTEN AND VERBAL DISCHARGE ORDERS. NO OTHER QUESTIONS OR CONCERNS AT TIME OF DISCHARGE.
== END 2024-09-01 13:33 | disposition home health service (06) | DRG 388 ==
LOC: ER 18:16 → MEDS 23:12 → ERHOLD 23:12 → MEDS 08-25 02:43 → ENPENDDIS 09-01 12:17 → MEDS 09-01 13:33
PROVIDERS: Emergency Medicine; Family Medicine; Internal Medicine Endocrinology, Diabetes & Metabolism; Nurse Practitioner Acute Care; Student in an Organized Health Care Education/Training Program; ADMIT Internal Medicine
PROC: 0D9670Z Drainage of Stomach with Drainage Device, Via Natural or Artificial Opening (ICD-10-PCS; principal; 2024-08-28)
DX: K56.600 Partial intestinal obstruction, unspecified as to cause (principal); I82.221 Chronic embolism and thrombosis of inferior vena cava; I69.354 Hemiplegia and hemiparesis following cerebral infarction affecting left non-dominant side; Z28.21 Immunization not carried out because of patient refusal; J44.9 Chronic obstructive pulmonary disease, unspecified; F32.A Depression, unspecified; I70.0 Atherosclerosis of aorta; G40.909 Epilepsy, unspecified, not intractable, without status epilepticus; F41.0 Panic disorder [episodic paroxysmal anxiety]; I48.0 Paroxysmal atrial fibrillation; G89.29 Other chronic pain; Z86.718 Personal history of other venous thrombosis and embolism; Z79.899 Other long term (current) drug therapy; Z79.84 Long term (current) use of oral hypoglycemic drugs; Z90.49 Acquired absence of other specified parts of digestive tract; Z90.710 Acquired absence of both cervix and uterus
CPT/HCPCS: 36415; 70450; 71045; 74022; 74176; 74250; 80048; 80053; 80069; 81001; 82010; 82803; 82947; 83605; 83690; 83735; 83880; 84100; 84484; 85025; 87040; 87077; 87086; 92610; 93005; 93010; 93306; 96374; 97162; 97530; 99285-25; A9270; C1751; J0295; J0360; J0780; J1650; J1953; J2250; J2405; J2470; J3010; J3480; J7030; J7050; J7120

== ENCOUNTER 2024-09-05 16:09 | Emergency (ER) | payer MEDICARE ==
[~2024-09-05] VITALS: Ht 157.5 cm; Wt 68.0 kg
[~2024-09-05 16:09] MED LIST changes: +ACET325 PO; +ASCO500 PO; +DOCU100 PO; +GLIP5ER PO; +Hair, Skin & N1 EACH PO; +METO25 PO; +MIRALAX1714 PO; +ONDA4ODT MM
[2024-09-05 16:58] LABS: BASOPHILS ABSOLUTE AUTO 0.02 K/mm3 (0.00-0.23); BASOPHILS PERCENT AUTO 0 % (0-2); EOSINOPHILS PERCENT AUTO 0 % (0-6); Hematocrit 37.1 % (33.0-51.0); Hemoglobin 12.4 g/dL (11.5-16.0); IMMATURE GRAN ABSOLUTE AUTO 0.03 K/mm3 (0.00-0.10); IMMATURE GRAN PERCENT AUTO 0 % (0-1); LYMPHOCYTES ABSOLUTE AUTO 0.72 K/mm3 (0.84-5.20); LYMPHOCYTES PERCENT AUTO 10 % (21-46); MONOCYTES ABSOLUTE AUTO 0.41 K/mm3 (0.16-1.47); MONOCYTES PERCENT AUTO 6 % (4-13); Mean Corpuscular HGB 31.7 pg (26.0-34.0); Mean Corpuscular HGB Conc 33.4 g/dL (31.5-36.5); Mean Corpuscular Volume 95 fL (80-100); Mean Platelet Volume 9.6 fL (9.1-12.4); NEUTROPHILS ABSOLUTE AUTO 6.24 K/mm3 (1.96-9.15); NEUTROPHILS PERCENT AUTO 84 % (41-73); Platelet Count 357 K/mm3 (150-400); RDW Coefficient Variation 12.7 % (11.7-14.2); RDW Standard Deviation 43.9 fL (35.1-46.3); Red Blood Cell Count 3.91 M/mm3 (3.80-5.20); White Blood Cell Count 7.42 K/mm3 (4.00-11.30)
[2024-09-05 17:46] LABS: Albumin, Blood 3.5 g/dL (3.4-5.0); Albumin/Globulin Ratio 0.7 (0.8-1.8); Bilirubin, Total 0.6 mg/dL (0.1-1.0); Calcium, Blood 9.8 mg/dL (8.5-10.1); Creatinine, Blood 0.37 mg/dL (0.40-1.00); Globulin, Blood 4.7 g/dL (2.2-4.0); Potassium, Blood 3.1 mmol/L (3.5-5.5); Total Protein, Blood 8.2 g/dL (6.4-8.2)
[2024-09-05] MEDS ORDERED: Ondansetron HCl 2 MG / ML 2ML Vial IV ONE (19:25)
[2024-09-05] MEDS ORDERED: Glycerin Adult Supp 1 EA PR ONE (21:35)
[2024-09-05 21:52] VITALS: BP 138/67
[2024-09-05] MEDS ORDERED: Potassium Chloride 20 MEQ TabCR PO ONE (22:10)
[2024-09-05] MEDS ORDERED: Magnesium Citrate 300 ML BTL PO ONE (22:10)
[2024-09-05] MEDS ORDERED: ADULT GLYCERIN1 EACH PR (22:13)
== END 2024-09-05 22:20 | disposition home or self-care (01) ==
LOC: ER 16:09
PROVIDERS: Student in an Organized Health Care Education/Training Program
DX: K59.00 Constipation, unspecified (principal); E87.6 Hypokalemia; R11.2 Nausea with vomiting, unspecified; R00.0 Tachycardia, unspecified; J44.9 Chronic obstructive pulmonary disease, unspecified; E11.9 Type 2 diabetes mellitus without complications; G40.909 Epilepsy, unspecified, not intractable, without status epilepticus; F32.9 Major depressive disorder, single episode, unspecified; K21.9 Gastro-esophageal reflux disease without esophagitis; E78.5 Hyperlipidemia, unspecified; Z79.899 Other long term (current) drug therapy; Z79.84 Long term (current) use of oral hypoglycemic drugs; Z87.891 Personal history of nicotine dependence
CPT/HCPCS: 71046; 74018; 74177; 80053; 85025; 96374-59; 99284-25; A9270; J2405; Q9967

== ENCOUNTER → 2024-11-09 | Outpatient (CLI) | payer MEDICARE ==
[~2024-11-09] MED LIST changes: +ADULT GLYCERIN1 EACH PR
[2024-11-09 20:57] LABS: Microalb/Creat Ratio UR, Rand 28.391 mg/g (0.000-30.000); Microalbumin, Random Urine 24.7 mg/L (0.000-20.000)
== END ==
LOC: LAB SHORT 15:27 → LAB 15:27
PROVIDERS: Physician Assistant
DX: E11.65 Type 2 diabetes mellitus with hyperglycemia (principal); E11.42 Type 2 diabetes mellitus with diabetic polyneuropathy
CPT/HCPCS: 82043; 82570